=== PATIENT | male | born 1955 | race Caucasian/White ===

== ENCOUNTER 2017-02-05 16:36 | Emergency (ER) | payer MEDICARE, MEDICAID, SELFPAY | END 2017-02-05 20:10 | disposition home or self-care (01) | PROVIDERS: Emergency Provider Emergency Medicine; Family Provider Family Medicine; Visit Provider Emergency Medicine | DX: J20.9 Acute bronchitis, unspecified (principal) | CPT/HCPCS: 71020; 80053; 85025; 87275; 87276; 94640; 99284 ==

== ENCOUNTER → 2018-01-23 09:03 | Outpatient (POV) | payer MEDICARE, SELFPAY ==
[2018-01-23 09:21] VITALS: BP 134/77; PULSE 79; RESP 18; O2SAT 99; BMI 23.7
--- NOTE | 2018-01-23 09:29 | HMH.PAINSOAP ---
[facility] Pain Management SOAP Note Subjective:: Patient is a pleasant 62-year-old white male who presents today for follow-up. Patient has not been seen for quite some time due to insurance changes. Patient states that he is having some neck pain with bilateral finger numbness. Patient states that his primary care physician feels that this is depression due to the of his girlfriend recently. She is currently on [place] 5 mg 1 p.o. 3 times daily from his primary care physician. Because the patient has not been seen for long we will start at the beginning and get some imaging of his neck due to his new symptomology. ROS General: no recent weight change, no fever, no sleep disturbances Respiratory: no cough, no shortness of air, no recurring pulmonary infections Cardiovascular/Peripheral Vascular: No chest pain, No palpitations, no edema, no shortness of breath. Gastrointestinal: no incontinence, normal bowel movements reported Genitourinary: no incontinence Musculoskeletal: Neck pain, arm pain, finger pain, back pain Psychiatric: normal mood/ affect Neurological: [denies weakness in extremities], [denies balance issues] Objective:: Physical Exam General: Alert and oriented x3, no acute distress, pleasant and cooperative, [on room air] Lungs: Resps E/U, Symmetrical chest expansion Eyes: Right pupil equal and reactive, blind in left eye Musculoskeletal: Flexion and extension of cervical and lumbar spine somewhat guarded secondary to pain, deep tendon reflexes normal, strength in upper and lower extremities [5/5], [abnormal gait noted] Neurological: speech clear, vp talent management equal, no gross sensory deficits Assessment:: Degenerative disc disease lumbar spine with lumbar radiculopathy symptoms, degenerative disc disease cervical spinal cervical radiculopathy, post laminectomy syndrome cervical spine Plan:: We will get an MRI of his cervical spine to assess his worsening pain. I do have some concerns given his bilateral hand involvement. We will follow-up with the patient after his MRI. This note was dictated using voice recognition software and may contain errors or omissions
--- NOTE | 2018-03-02 11:12 | PC.NURSE ---
PT NOTIFIED OF APPT WITH DR TAN AT [facility] MAR 27 AT 1015 AND WAS INSTRUCTED TO BRING HIS DISC OF HIS MRI WITH HIM. ZHOU MURILLO.
== END ==
PROVIDERS: PCP Family Medicine; Visit Provider Clinical Nurse Specialist Family Health
DX: M51.16 Intervertebral disc disorders with radiculopathy, lumbar region (principal); M50.10 Cervical disc disorder with radiculopathy, unspecified cervical region; M96.1 Postlaminectomy syndrome, not elsewhere classified
CPT/HCPCS: 99213

== ENCOUNTER → 2018-02-08 12:50 | Outpatient (CLI) | payer MEDICARE, SELFPAY ==
--- NOTE | 2018-02-08 12:53 | MR_ITS ---
MR cervical spine wo con, MR 3-d myelogram/MRCP Ordering Physician: Rashida Hannah Patient Age: 63 years: Male HISTORY: ITS.REASON: NECK PAIN Neck pain many years. Bilateral arm pain. Bilateral hand numbness and tingling.. Prior surgery 1988 Prior cervical fusion TECHNIQUE: Sagittal STIR, T1, T2, axial T1 and T2. On 1.5T Siemens wide bore MRI. 3-D MR myelogram image set obtained & performed on MRI workstation. Additional sagittal thin section T2 weighted dataset obtained from this latter acquisition as well (---76 CPT) COMPARISON :March 2011 CT cervical spine. FINDINGS Cranial cervical junction satisfactory but there is a modest caliber spinal canal at C1 level on 11 mm AP. C2/3 a tiny central disc protrusion. Negligible C3/4. Moderate central canal stenosis Mild Degenerative disc space narrowing with cervical spondylosis. The disc-/ osteophyte features flattening the anterior aspect of the thecal sac & cervical cord but is also some mild posterior element prominence.. Features does yield moderate central canal stenosis. At this level central canal narrows to 6-7 mm. With this there is slight increased signal at the right aspect of the cervical cord seen on sagittal water-weighted images which may reflect cervical myelopathy changes C4/5.. Most Severe central canal stenosis. Prominent, large central disc protrusionAlong with bilateral uncovertebral joint hypertrophy.-Features yields severe central canal stenosis with Prominent flattening and compression of the cervical cord at this level. Central canal narrows to just over 4 mm AP.. Subtle increased signal cervical cord most notable on the axial images may reflect cervical myelopathy changes. Appears to be progressive central disc protrusion/herniation since 2011 C-spine Previous fusion of the C5-C6-C7 vertebral bodies. Disc space obliterated. . At C5/6 There is some mild posterior hypertrophic ridging to the left at C5-C6, which slightly indents the left anterior aspect of the thecal sac. At C6/7 The posterior hypertrophic ridging to more pronounced the left at C6/7, with spurring encroaching upon the left recess & left foramen... C 6/7. Disc intact as is T1/T2. No foramen widely patent bilaterally throughout T2/3. Scant disc protrusion left paracentral. Nonspecific straightening throughout the cervical spine. 3-D MR myelogram image set demonstrates the the pronounced central canal spinal stenosis most severe at C4/5 and less pronounced mild central canal stenosis at C3/4. IMPRESSION: Severe central canal stenosis at C4/5, with moderately pronounced central canal stenosis at C3/4 C4/5. Most Severe central canal stenosis-mainly due fairly large central disc protrusion/central disc herniation at this level.. Also uncovertebral joint hypertrophy & generous posterior elements contribute.... Central canal narrows to just over 4 mm AP-marked effacement & flattening of the cervical cord.. Very Faint increased signal within the cervical cord C4/5 level likely reflect subtle myelopathy as well.. Hypertrophic spurring yields bilateral foraminal encroachment most evident to the left. C4/5 C3/4 moderate pronounced central canal stenosis . Diffuse Disc/osteophyte features along with mildly prominent posterior elements narrows the spinal canal. Yields a fairly pronounced central canal stenosis. There is also focal bright areas of increased signal at the within the right aspect the cervical cord itself reflecting Cervical Myelopathy.. Old cervical fusion of C5-C6-C7 vertebral bodies.. Disc space is basically obliterated at each of these levels due to the fusion. Note generous posterior hypertrophy/osteophytic ridging & spurring to the left-most pronounced/prominent at C6/7 and to lesser degree C5/6. The
== END ==
PROVIDERS: PCP Family Medicine; Visit Provider Clinical Nurse Specialist Family Health
DX: M54.2 Cervicalgia (principal)
CPT/HCPCS: 72141; 76376

== ENCOUNTER → 2018-02-19 12:34 | Outpatient (POV) | payer MEDICARE, SELFPAY ==
--- NOTE | 2018-02-19 13:02 | HMH.PAINSOAP ---
[facility] Pain Management SOAP Note Subjective:: Is a pleasant 63-year-old white male who presents today for follow-up after recent vehicle MRI. Patient has new pathology on his MRI above the level of his fusion. He rates his pain a 9 out of 10. He is on [place] from his Medicare he states he is on any anti-inflammatories at this time. Encouraged him to use ibuprofen. ROS General: no recent weight change, no fever, no sleep disturbances Respiratory: no cough, no shortness of air, no recurring pulmonary infections Cardiovascular/Peripheral Vascular: No chest pain, No palpitations, no edema, no shortness of breath. Gastrointestinal: no incontinence, normal bowel movements reported Genitourinary: no incontinence Musculoskeletal: Neck pain, arm pain Psychiatric: normal mood/ affect Neurological: [denies weakness in extremities], [denies balance issues] Objective:: Physical Exam General: Alert and oriented x3, no acute distress, pleasant and cooperative, [on room air] Lungs: Resps E/U, Symmetrical chest expansion, Eyes: PERRL Musculoskeletal: Flexion and extension of cervical spine somewhat guarded secondary to pain, deep tendon reflexes normal, strength in upper and lower extremities [5/5], [abnormal gait noted] Neurological: speech clear, party host equal, no gross sensory deficits Assessment:: Degenerative disc disease cervical spinal cervical radiculopathy, postlaminectomy syndrome cervical spine. Plan:: We will schedule a C4-C5 cervical steroid injection for the patient. We will also schedule a consultation in regards his new MRI with Dr. Greenberg. The patient is not on any anticoagulation therapy. This note was dictated using voice recognition software and may contain errors or omissions
--- NOTE | 2018-02-19 13:07 | P.CONS_ITS ---
[facility] Pain Management SOAP Note Subjective:: Is a pleasant 63-year-old white male who presents today for follow-up after recent vehicle MRI. Patient has new pathology on his MRI above the level of his fusion. He rates his pain a 9 out of 10. He is on [place] from his Medicare he states he is on any anti-inflammatories at this time. Encouraged him to use ibuprofen. ROS General: no recent weight change, no fever, no sleep disturbances Respiratory: no cough, no shortness of air, no recurring pulmonary infections Cardiovascular/Peripheral Vascular: No chest pain, No palpitations, no edema, no shortness of breath. Gastrointestinal: no incontinence, normal bowel movements reported Genitourinary: no incontinence Musculoskeletal: Neck pain, arm pain Psychiatric: normal mood/ affect Neurological: [denies weakness in extremities], [denies balance issues] Objective:: Physical Exam General: Alert and oriented x3, no acute distress, pleasant and cooperative, [on room air] Lungs: Resps E/U, Symmetrical chest expansion, Eyes: PERRL Musculoskeletal: Flexion and extension of cervical spine somewhat guarded secondary to pain, deep tendon reflexes normal, strength in upper and lower extremities [5/5], [abnormal gait noted] Neurological: speech clear, sheet tailer equal, no gross sensory deficits Assessment:: Degenerative disc disease cervical spinal cervical radiculopathy, postlaminectomy syndrome cervical spine. Plan:: We will schedule a C4-C5 cervical steroid injection for the patient. We will also schedule a consultation in regards his new MRI with Dr. Greenberg. The patient is not on any anticoagulation therapy. This note was dictated using voice recognition software and may contain errors or omissions
[2018-02-19 13:15] VITALS: BP 139/75; PULSE 79; RESP 18; O2SAT 98; BMI 23.8
== END ==
PROVIDERS: PCP Family Medicine; Visit Provider Clinical Nurse Specialist Family Health
DX: M50.10 Cervical disc disorder with radiculopathy, unspecified cervical region (principal); M96.1 Postlaminectomy syndrome, not elsewhere classified
CPT/HCPCS: 99213

== ENCOUNTER 2020-03-03 12:08 | Emergency (ER) | payer MEDICARE, MEDICAID, SELFPAY ==
[2020-03-03 12:10] VITALS: BP 140/87; PULSE 82; RESP 20; TEMP 36.5; O2SAT 97; BMI 30.4
--- NOTE | 2020-03-03 12:20 | ECG_ITS ---
APPROVED REPORT Exam: Resting ECG HR:83 bpm ECG Measurements Heart Rate 83 AXES RI 160 P 69 QRSd 92 QRS 81 QT 368 T 49 QTc 432 Conclusion Normal sinus rhythm Normal ECG Electronically signed by : Jayme Levin, 03/03/2020 20:58:37
--- NOTE | 2020-03-03 12:23 | XR_ITS ---
PROCEDURE: XR CHEST PORTABLE CLINICAL HISTORY: cough COMPARISON: CT [facility] CT CHEST W/O CONTRAST from 08/15/2013 CR CXR1 CHEST-PORTABLE from 09/15/2014 CR CXR CHEST(2 VIEWS-NOT PORTABLE) from 02/05/2017 CR XR CHEST 2V from 04/05/2019 FINDINGS: The cardiomediastinal silhouette and pulmonary vascularity are within normal limits. The lungs are clear without infiltrates, suspicious nodules, or pleural effusions. No acute bony abnormalities. IMPRESSION: No acute findings. Dictated by: Rush Benson MD 03/03/2020 12:56 Rush Benson MD in [place] 03/03/2020 12:56
--- NOTE | 2020-03-03 12:24 | CT_ITS ---
PROCEDURE: CT ABDOMEN PELVIS WO CON CLINICAL INDICATION: abd pain Epigastric burning, pain, epigastric COMPARISON: CT WO CT CHEST W/O CONTRAST from 08/15/2013 TECHNIQUE: Axial images obtained with sagittal and coronal reformats. All CT scans at the facility use one or more dose reduction, viz: automated exposure control, ma/kV adjustment per patient size (including targeted exams where dose is matched to indication, i.e. head), or iterative reconstruction technique. FINDINGS: LOWER THORAX: Minimal atelectatic/fibrotic changes are present in the lung bases with scattered small bilateral pulmonary nodules which appear similar compared to 08/15/2013. Coronary artery calcifications are present. There is minimal thickening of the pericardium anteriorly nonspecific. ABDOMEN & PELVIS: 3.4 x 3 cm cystic areas present in the left hepatic lobe segment 4 a consistent with a hepatic cyst. This previously measured 2.4 by 1.7 cm. An additional hypodensity is present in the right hepatic lobe segment 5 measuring 8 mm and may also represent a small cyst. Gallstones are present. The spleen and left adrenal gland are unremarkable. Nodular enlargement involves the lateral limb of the right adrenal gland not significantly changed measuring approximately 12 mm consistent with an adenoma. The pancreas has an unremarkable appearance. There is a mildly enlarged perigastric lymph node along the lesser curvature of the stomach measuring approximately 13 by 10 mm. Other smaller nodes are present in the epigastric area and periportal region. No renal or ureteral calculi. No hydronephrosis.. Prior appendectomy. No intestinal obstruction or free air. No evidence diverticulitis. There are few colonic diverticula. There are mild osteoarthritic changes of the hips. Exostosis involves the left ilium anteriorly and could be due to old fracture or postsurgical change. IMPRESSION: 1. Cholelithiasis. 2. Mild epigastric/perigastric adenopathy. Etiology indeterminate. 3. Hepatic cysts 4. Other nonacute findings as detailed above. Dictated by: Rush Benson MD 03/03/2020 13:12 Rush Benson MD in [place] 03/03/2020 13:12
[2020-03-03 12:36] LABS: Basophils % 0.4 % (0.1-2.0); Eosinophils # 0.3 K/mm3 (0.0-0.4); Eosinophils % 2.7 % (0.1-12.0); Hematocrit 50.5 % (42.0-52.0); Hemoglobin 17.5 g/dL (14.1-18.0); Lymphocytes # 1.4 K/mm3 (0.7-4.5); Lymphocytes % 14.6 % (10-50); Mean Corpuscular HGB Conc 34.6 g/dL (31.8-35.4); Mean Corpuscular Volume 95.3 fl (80-94); Mean Platelet Volume 10.3 fl (7.4-10.4); Monocytes # 0.6 K/mm3 (0.1-1.0); Monocytes % 6.5 % (1.7-9.3); Neutrophils # 7.3 K/mm3 (1.8-7.8); Neutrophils % 75.8 % (37.0-80.0); Platelet Count 237 K/mm3 (142-424); White Blood Count 9.6 K/mm3 (4.8-10.8)
[2020-03-03 12:42] LABS: Chloride 104 mmol/L (98-107)
[2020-03-03 12:43] LABS: Potassium 4.8 mmoL/L (3.5-5.1); Sodium 137 mmol/L (136-145)
[2020-03-03 12:45] LABS: Alanine Aminotransferase 22 U/L (12-78); Alkaline Phosphatase 98 U/L (38-126); Anion Gap 11.8 mEq/L (5-15); Aspartate Amino Transferase 25 U/L (17-59); Bilirubin,Total 0.6 mg/dl (0.2-1.3); Blood Urea Nitrogen 17 mg/dl (9-20); Carbon Dioxide 26 mmol/L (22.0-30.0); Creatinine Clearance Estimated 92 mL/min (50-200); Estimated Glomerular Filt Rate 134 ml/min (>60); GFR (African American) 163 ML/MIN (>60); Lipase 109 U/L (23-300)
[2020-03-03 12:46] LABS: Albumin Level 4.1 g/dl (3.5-5.0); Albumin/Globulin Ratio 1.3 (1.1-1.8); Calcium 9.6 mg/dl (8.4-10.2); Globulin 3.1 g/dL (1.3-3.2); Glucose 156 mg/dl (74-100); Total Protein,Serum 7.2 g/dl (6.3-8.2)
[2020-03-03 12:52] LABS: Activated Partial Thrombo Time 26.9 seconds (23.6-34.0); INR 1.02 (0.9-1.1); Prothrombin Time 11.3 seconds (9.4-11.8)
[2020-03-03 13:00] LABS: Troponin I < 0.01 ng/ml (0.00-0.034)
[2020-03-03 13:11] LABS: Coronavirus 19 IgG Antibody Negative (Negative); Coronavirus 19 IgM Antibody Negative (Negative)
--- NOTE | 2020-03-03 14:05 | HMH.EDGENADL ---
ED Disposition Clinical Impression: PUD (peptic ulcer disease) Disposition: Home, Self-Care Condition on Discharge: Good Instructions: DI for Peptic Ulcer Prescriptions: Sucralfate [Carafate 1gm Tab] 1 gm PO BID #10 tab Transmission Status: Pending to [facility] Mag Hydrox/Aluminum Hyd/Simeth [Maalox 30ml UDC] 30 ml PO TID #120 oral.susp Transmission Status: Pending to [facility] Famotidine [Pepcid 20mg Tablet] 20 mg PO DAILY #20 tab Transmission Status: Pending to [facility] Referrals: Joe Prince [Primary Care Provider] - Jus Li MD [Staff Physician] - - Critical Care Critical Care Time: No Attestation: On 03/03/20, the high probability of a clinically significant, sudden or life threatening deterioration of the following system(s) required my full and direct attention, intervention and personal management. The time I documented below is in addition to time spent performing reported procedures but includes the following listed in this critical care notation. Medical Decision Making - Medical Records Medical records reviewed: Yes: I reviewed the patient's medical records. - Lan Inquiry Pt receiving controlled substance: Yes Lan was queried for this patient: No Reason not queried -: Lan login issues Risks and benefits of using a controlled substance: were discussed with pt by me Vital Signs: 03/03/20 12:10 03/03/20 16:33 Temperature 97.7 F 97.9 F Temperature Source Oral Oral Pulse Rate 80 Pulse Rate [Left Radial] 82 Respiratory Rate 20 18 Blood Pressure 145/88 H Blood Pressure [Right Arm] 140/87 Blood Pressure Mean [Right Arm] 104 Blood Pressure Source Automatic Cuff Blood Pressure Source [Right Arm] Automatic Cuff Blood Pressure Position Sitting Blood Pressure Position [Right Arm] Sitting 02 Sat by Pulse Oximetry 97 Oxygen Delivery Method Room Air Room Air - Lab Data Lab Results 03/03/20 12:20: WBC 9.6, RBC 5.30, Hgb 17.5, Hct 50.5, MCV 95.3 H, MCH 33.0 H, MCHC 34.6, RDW 13.0, Plt Count 237, MPV 10.3, Neut % (Auto) 75.8, Lymph % (Auto) 14.6, [place] % (Auto) 6.5, Eos % (Auto) 2.7, Baso % (Auto) 0.4, Neut # (Auto) 7.3, Lymph # (Auto) 1.4, [place] # (Auto) 0.6, Eos # (Auto) 0.3, Baso # (Auto) 0.0 03/03/20 12:20: Sodium 137, Potassium 4.8, Chloride 104, Carbon Dioxide 26, Anion Gap 11.8, BUN 17, Creatinine 0.60 L, Estimated Creat Clear 92, Estimated GFR 134, Est GFR ( Amer) 163, Glucose 156 H, Calcium 9.6, Total Bilirubin 0.6, AST 25, ALT 22, Alkaline Phosphatase 98, Troponin I < 0.01, Total Protein 7.2, Albumin 4.1, Globulin 3.1, Albumin/Globulin Ratio 1.3, Lipase 109 03/03/20 12:20: SARS-CoV-2 IgG Ab (Rapid) Negative, SARS-CoV-2 IgM Ab (Rapid) Negative 03/03/20 12:20: PT 11.3, INR 1.02, APTT 26.9 03/03/20 15:25: Troponin I < 0.01 Result diagrams: 03/03/20 12:20 03/03/20 12:20 Orders (Tests/Meds): ED MEDICATIONS Generic Name Dose Route Start Last Admin Trade Name Freq PRN Reason Stop Dose Admin Sodium Chloride 10 ml 03/03/20 12:24 Sodium Chloride 0.9% 10ml Vial IV 04/02/20 12:23 NEEDED PRN dilute protonix Discontinued Medications Generic Name Dose Route Start Last Admin Trade Name Freq PRN Reason Stop Dose Admin Belladonna Alkaloids 60 ml 03/03/20 14:41 03/03/20 15:57 Gi Cocktail 60ml Udc PO 03/03/20 14:42 60 ml ONCE ONE Administration Morphine Sulfate 4 mg 03/03/20 12:23 03/03/20 12:32 Morphine 4mg/Ml Syringe IV 03/03/20 12:24 4 mg ONCE ONE Administration Ondansetron HCl 4 mg 03/03/20 12:23 03/03/20 12:32 Ondansetron 4mg/2ml Vial IV 03/03/20 12:24 4 mg ONCE ONE Administration Pantoprazole Sodium 40 mg 03/03/20 12:24 03/03/20 12:32 Pantoprazole 40mg Vial IV 03/03/20 12:25 40 mg ONCE ONE Administration ORDERS Category Date Time Status Troponin I Q3H Lab 03/03/20 18:30 Ordered - Radiology Data #1 Image(s): Chest Image Reviewed: Yes
[2020-03-03 16:04] LABS: Troponin I < 0.01 ng/ml (0.00-0.034)
[2020-03-03 16:33] VITALS: BP 145/88; PULSE 80; RESP 18; TEMP 36.6; O2SAT 96
== END 2020-03-03 16:44 | disposition home or self-care (01) ==
PROVIDERS: Emergency Provider Emergency Medicine; PCP Family Medicine
DX: K27.9 Peptic ulcer, site unspecified, unspecified as acute or chronic, without hemorrhage or perforation (principal); E78.5 Hyperlipidemia, unspecified; F17.210 Nicotine dependence, cigarettes, uncomplicated; Z88.0 Allergy status to penicillin
CPT/HCPCS: 36415; 71045; 74176; 80053; 83690; 84484; 85025; 85610; 85730; 86328; 93005; 96367; 96374; 99281; J2405

== ENCOUNTER 2020-04-06 04:23 | Emergency (ER) | payer MEDICARE, MEDICAID, SELFPAY ==
[2020-04-06 04:24] VITALS: BP 133/86; PULSE 77; RESP 16; TEMP 36.5; O2SAT 97; BMI 30.4
--- NOTE | 2020-04-06 04:40 | CT_ITS ---
PROCEDURE: CT CERVICAL SPINE WO CON CLINICAL INDICATION: accident Severe neck pain radiating down right cyst COMPARISON: No exams were available for comparison TECHNIQUE: Axial images obtained with sagittal and coronal reformats. All CT scans at the facility use one or more dose reduction, viz: automated exposure control, ma/kV adjustment per patient size (including targeted exams where dose is matched to indication, i.e. head), or iterative reconstruction technique. Axial spiral CT scanning performed of the cervical spine beginning at the base of the skull and continuing to the upper T-spine. 3-D multiplanar reconstruction with 3-D manipulation of volumetric data set in image rendering was completed by the radiologist and/or technologist with the supervision of the radiologist on independent workstation. FINDINGS: No fracture nor subluxation is evident. Normal prevertebral soft tissues. Facets, neural foramen and vertebral bodies intact and unremarkable. Normal C1/C2 relationships. Apices of lungs are clear with no acute findings. There is straightening/reversal of the normal lordosis which may be due to patient positioning or muscle spasm.. There is fusion of C5-C6 and C7 vertebral bodies with mild kyphosis at the C4-C5 level. No acute fracture or dislocation. C2-C3: Degenerate disc disease with severe narrowing of the foramen on the left from facet and uncovertebral hypertrophy. C3-C4: Severe degenerative disc disease with severe bilateral foraminal narrowing from facet and uncovertebral hypertrophy with canal stenosis. C4-C5: Large central disc herniation is suspected slightly eccentric toward the left. Suggest MRI for confirmation and to determine degree of cord impingement/compression. Prominent left-sided uncovertebral disc osteophyte complex with left lateral recess narrowing and severe left-sided foraminal narrowing. Facet hypertrophic changes also noted. There is canal stenosis at this level. C5-C6: Intervertebral body fusion with prominent left uncovertebral disc osteophyte complex with severe left lateral recess and foraminal narrowing. C6-C7: Inter vertebral body fusion with canal stenosis and endplate osteophytes with severe left-sided foraminal and lateral recess narrowing from disc osteophyte complex. Right-sided foraminal narrowing also noted. C7-T1: Unremarkable. Lung apices are clear.. IMPRESSION: Multilevel cervical spondylosis with canal stenosis lateral recess and foraminal narrowing. Please see above for detailed description at each level. Suspect disc herniation at C4-C5. Suggest MRI for confirmation No acute fracture Dictated by: Rush Benson MD 04/06/2020 07:05 Rush Benson MD in [place] 04/06/2020 07:05
[2020-04-06 04:56] LABS: Basophils # 0.1 K/mm3 (0-0.2); Basophils % 0.6 % (0.1-2.0); Eosinophils # 0.3 K/mm3 (0.0-0.4); Eosinophils % 3.8 % (0.1-12.0); Hematocrit 47.7 % (42.0-52.0); Hemoglobin 15.6 g/dL (14.1-18.0); Lymphocytes # 2.1 K/mm3 (0.7-4.5); Lymphocytes % 27.4 % (10-50); Mean Corpuscular HGB Conc 32.8 g/dL (31.8-35.4); Mean Corpuscular Hemoglobin 31.8 pg (27.0-31.2); Mean Corpuscular Volume 96.9 fl (80-94); Mean Platelet Volume 9.6 fl (7.4-10.4); Monocytes # 0.7 K/mm3 (0.1-1.0); Monocytes % 8.6 % (1.7-9.3); Neutrophils # 4.6 K/mm3 (1.8-7.8); Neutrophils % 59.6 % (37.0-80.0); Platelet Count 198 K/mm3 (142-424); Red Blood Count 4.93 M/mm3 (4.60-6.20); White Blood Count 7.7 K/mm3 (4.8-10.8)
[2020-04-06 05:04] LABS: Chloride 104 mmol/L (98-107); Potassium 4.6 mmoL/L (3.5-5.1); Sodium 139 mmol/L (136-145)
[2020-04-06 05:07] LABS: Alanine Aminotransferase 26 U/L (12-78); Albumin/Globulin Ratio 1.3 (1.1-1.8); Alkaline Phosphatase 93 U/L (38-126); Anion Gap 7.6 mEq/L (5-15); Aspartate Amino Transferase 31 U/L (17-59); Bilirubin,Total 0.6 mg/dl (0.2-1.3); Blood Urea Nitrogen 14 mg/dl (9-20); Calcium 9.7 mg/dl (8.4-10.2); Carbon Dioxide 32 mmol/L (22.0-30.0); Creatinine Clearance Estimated 92 mL/min (50-200); Estimated Glomerular Filt Rate 112 ml/min (>60); GFR (African American) 136 ML/MIN (>60); Globulin 3.1 g/dL (1.3-3.2); Glucose 138 mg/dl (74-100); Total Protein,Serum 7.1 g/dl (6.3-8.2)
--- NOTE | 2020-04-06 05:26 | HMH.EDNECK ---
ED Disposition Clinical Impression: Cervical radicular pain, Foraminal stenosis of cervical region Disposition: Home, Self-Care Condition on Discharge: Good Instructions: DI for Cervical Radiculopathy Additional Instructions: use meds and call pcp for follow up Prescriptions: predniSONE [Prednisone 20mg Tab] 20 mg PO BID #10 tab Transmission Status: Pending to [facility] Referrals: Joe Prince [Primary Care Provider] - - Critical Care Critical Care Time: No Attestation: On 04/06/20, the high probability of a clinically significant, sudden or life threatening deterioration of the following system(s) required my full and direct attention, intervention and personal management. The time I documented below is in addition to time spent performing reported procedures but includes the following listed in this critical care notation. Medical Decision Making - Medical Records Medical records reviewed: Yes: I reviewed the patient's medical records. - Lan Inquiry Pt receiving controlled substance: No Vital Signs: 04/06/20 04:24 Temperature 97.7 F Temperature Source Oral Pulse Rate [Left] 77 Respiratory Rate 16 Blood Pressure [Left Arm] 133/86 Blood Pressure Mean [Left Arm] 101 02 Sat by Pulse Oximetry 97 Oxygen Delivery Method Room Air - Lab Data Lab results reviewed: Yes: I reviewed the patient's lab results. Lab Results 04/06/20 04:47: WBC 7.7, RBC 4.93, Hgb 15.6, Hct 47.7, MCV 96.9 H, MCH 31.8 H, MCHC 32.8, RDW 13.0, Plt Count 198, MPV 9.6, Neut % (Auto) 59.6, Lymph % (Auto) 27.4, [place] % (Auto) 8.6, Eos % (Auto) 3.8, Baso % (Auto) 0.6, Neut # (Auto) 4.6, Lymph # (Auto) 2.1, [place] # (Auto) 0.7, Eos # (Auto) 0.3, Baso # (Auto) 0.1 04/06/20 04:47: Sodium 139, Potassium 4.6, Chloride 104, Carbon Dioxide 32 H, Anion Gap 7.6, BUN 14, Creatinine 0.70, Estimated Creat Clear 92, Estimated GFR 112, Est GFR ( Amer) 136, Glucose 138 H, Calcium 9.7, Total Bilirubin 0.6, AST 31, ALT 26, Alkaline Phosphatase 93, C-Reactive Protein 2.0, Total Protein 7.1, Albumin 4.0, Globulin 3.1, Albumin/Globulin Ratio 1.3 Result diagrams: 04/06/20 04:47 04/06/20 04:47 Orders (Tests/Meds): ED MEDICATIONS Discontinued Medications Generic Name Dose Route Start Last Admin Trade Name Júniorq PRN Reason Stop Dose Admin Ketorolac Tromethamine 30 mg 04/06/20 04:41 04/06/20 04:50 Ketorolac 30mg/Ml Vial IV 04/06/20 04:42 30 mg ONCE ONE Administration Methylprednisolone Sodium Succinate 125 mg 04/06/20 04:41 04/06/20 04:50 Methylprednisolone Sod Succ 125mg Vial IV 04/06/20 04:42 125 mg ONCE ONE Administration ORDERS Category Date Time Status CT cervical spine wo con Stat Cat Scan 04/06/20 04:40 Taken C-Reactive Protein Stat Lab 04/06/20 04:47 Results Complete Blood Count Auto Diff Stat Lab 04/06/20 04:47 Results Comprehensive Metabolic Panel Stat Lab 04/06/20 04:47 Results ESR [Erythrocyte Sedimentation Rate] Stat Lab 04/06/20 04:47 Results Procalcitonin Stat Lab 04/06/20 04:47 Results - CT Data CT Scan: C-Spine Time Received: 05:[address] Reviewed: Yes: I have viewed the radiologist's interpretation Preliminary Findings: Abnormal (see report ) - Reevaluation(s) Time: 05:30 Reevaluation #1: improved Medical Decision Narrative: cervical disc with radicular pain after overuse will need mri Neck Pain/Injury HPI - General Chief Complaint: Extremity Injury, Upper Stated Complaint: Pain in rt neck and down arm Time Seen by Provider: 04/06/20 04:35 Mode of Arrival: Ambulatory Source of Information: Patient, Medical Record Limitations: No Limitations Description of Symptoms (Recalled from ER Triage Doc. by RN): pt states yesterday morning was using a sledge hammer to break up the ice in driveway. pt c/o rt side neck pain radiating down rt arm. - History of Present Illness HPI Narrative: rt neck pain with rad to rt upper ext after overuse - no rash o
[2020-04-06 05:27] LABS: Procalcitonin 0.053 ng/mL (0.0-2.0)
[2020-04-06 05:38] VITALS: BP 137/74; PULSE 75; RESP 14; TEMP 36.3; O2SAT 96
[2020-04-06 05:52] LABS: Erythrocyte Sedimentation Rate 15 mm/hr (0-20)
== END 2020-04-06 05:39 | disposition home or self-care (01) ==
PROVIDERS: Emergency Provider Emergency Medicine; PCP Family Medicine
DX: M54.12 Radiculopathy, cervical region (principal); M48.02 Spinal stenosis, cervical region; M70.88 Other soft tissue disorders related to use, overuse and pressure other site; E78.5 Hyperlipidemia, unspecified; Z88.0 Allergy status to penicillin; F17.210 Nicotine dependence, cigarettes, uncomplicated; Z79.899 Other long term (current) drug therapy
CPT/HCPCS: 96374; 72125; 80053; 84145; 85025; 85651; 86140; 96375; 99282

== ENCOUNTER 2020-09-08 18:02 | Emergency (ER) | payer MEDICARE, MEDICAID, SELFPAY ==
[2020-09-08 18:04] VITALS: BP 134/74; PULSE 91; RESP 16; TEMP 36.6; O2SAT 98; BMI 27.5
--- NOTE | 2020-09-08 18:17 | XR_ITS ---
PROCEDURE INFORMATION: Exam: XR Right Hip Exam date and time: 09/08/2020 6:17 PM Age: 65 years old Clinical indication: Injury or trauma; Fall; Blunt trauma (contusions or hematomas); Patient HX: Patient fell 3 days ago in his yard reaching for a limb. Right hip pain. Difficulty ambulating. ; Additional info: Fall pain TECHNIQUE: Imaging protocol: XR Right hip. Views: 2 or 3 views hip with pelvis when performed. COMPARISON: CT ABDOMEN PELVIS WO CON 03/03/2020 12:33 PM FINDINGS: Bones/joints: Chronic appearing changes in the left iliac bone were present on prior CT. No displaced fracture. [id number] bilateral degenerative hip arthritis. Soft tissues: Unremarkable. Other findings: No malalignment. IMPRESSION: No evidence of acute osseous injury. For high clinical concern or inability to bear weight, CT is offered.
--- NOTE | 2020-09-08 18:33 | PC.NURSE ---
PT GOING TO XRAY
--- NOTE | 2020-09-08 18:56 | CT_ITS ---
PROCEDURE INFORMATION: Exam: CT Pelvis Without Contrast; Skeletal Exam date and time: 09/08/2020 6:56 PM Age: 65 years old Clinical indication: Patient HX: Right hip pain after a fall 3 days ago , unable to bear weight on right hip; Additional info: Right hip pain difficulty bearing weight TECHNIQUE: Imaging protocol: Computed tomography images of the pelvis without contrast. Exam focused on the skeletal structures. 3D rendering (Not supervised by radiologist): MIP and/or 3D reconstructed images were created by the technologist. Radiation optimization: All CT scans at this facility use at least one of these dose optimization techniques: automated exposure control; mA and/or kV adjustment per patient size (includes targeted exams where dose is matched to clinical indication); or iterative reconstruction. COMPARISON: CT ABDOMEN PELVIS WO CON 03/03/2020 12:33 PM FINDINGS: Bones/joints: Chronic appearing changes in the left iliac bone may be due to prior harvest or injury. No fracture. No malalignment. Mild to moderate bilateral degenerative changes in the hips. Mild bilateral degenerative changes in the SI joints. Mild lower lumbar facet arthropathy. Soft tissues: Unremarkable. IMPRESSION: No evidence of fracture
--- NOTE | 2020-09-08 19:10 | HMH.EDGENADL ---
ED Disposition Clinical Impression: Contusion, hip Qualifiers: Encounter type: initial encounter Laterality: right Qualified Code(s): S70.01XA - Contusion of right hip, initial encounter Disposition: Home, Self-Care Condition on Discharge: Good Additional Instructions: Use Tylenol and ibuprofen for pain and return to the ED for any new or worsening symptoms. Referrals: Joe Prince [Primary Care Provider] - Time of Disposition: 19:46 - Critical Care Critical Care Time: No Attestation: On 09/08/20, the high probability of a clinically significant, sudden or life threatening deterioration of the following system(s) required my full and direct attention, intervention and personal management. The time I documented below is in addition to time spent performing reported procedures but includes the following listed in this critical care notation. Medical Decision Making - Medical Records Medical records reviewed: Yes: I reviewed the patient's medical records. - Lan Inquiry Pt receiving controlled substance: No Vital Signs: 09/08/20 18:04 Temperature 98 F Temperature Source Oral Pulse Rate [Radial] 91 H Respiratory Rate 16 Blood Pressure [Right Arm] 134/74 Blood Pressure Mean [Right Arm] 94 Blood Pressure Position [Right Arm] Sitting 02 Sat by Pulse Oximetry 98 Oxygen Delivery Method Room Air Orders (Tests/Meds): ED MEDICATIONS Discontinued Medications Generic Name Dose Route Start Last Admin Trade Name Freq PRN Reason Stop Dose Admin Ketorolac Tromethamine 30 mg 09/08/20 18:36 09/08/20 18:49 Ketorolac 30mg/Ml Vial IM 09/08/20 18:37 30 mg ONCE ONE Administration Medical Decision Narrative: 65-year-old male who presents with right hip pain after a fall from standing 3 days ago. Patient is having pain with weightbearing. Initial x-ray demonstrates no acute fracture or malalignment. A CT bony pelvis is ordered due to the patient's persistent difficulty with bearing weight. Patient was given Toradol 30 mg IM. General Adult HPI - General Chief complaint: PAIN Stated complaint: Pain in R hip and leg Time Seen by Provider: 09/08/20 18:15 Mode of Arrival: Ambulatory Limitations: No Limitations Description of Symptoms (Recalled from ER Triage Doc. by RN): TO ED PER PVT CAR WITH C/O RT HIP PAIN STATES FELL 3 DAYS AGO X 2 PT STATES RT LEG GAVE OUT ON ME PT DENIES LOC. - History of Present Illness HPI narrative: 65-year-old male who presents ambulating in the department with some difficulty with severe limp to the right leg after he was pulling on a tree limb and fell from standing onto the right hip 3 days ago. He has mostly been resting since then with shooting pain from the right hip down to the knee. Pain is sharp in nature and is currently 5 out of 10 worse with walking. Denies lower back pain, saddle anesthesia, weakness to the leg, urinary retention, numbness. Denies head trauma. - Related Data Home Medications Medication Instructions Recorded Confirmed Albuterol Sulfate [Ventolin HFA 2 puffs PO QID 12/16/17 04/05/19 Inhaler] Atorvastatin Calcium [Atorvastatin 40 mg PO HS 12/16/17 04/05/19 40mg Tab] Fluticasone/Vilanterol [Breo 1 inh PO DAILY 12/16/17 04/05/19 Ellipta 100-25 Mcg INH] Hydrocod/Acet 5/325 mg [[place] 1 tab PO TID 12/16/17 04/05/19 5/325mg tablet] Levothyroxine Sodium 25 mcg PO DAILY 12/16/17 04/05/19 [Levothyroxine 25mcg (0.025mg) Tab] Diclofenac Sodium [Diclofenac Sod 1 applicatio TP QID 04/05/19 04/05/19 100gm Topical Gel] Previous Rx's Medication Instructions Recorded Tizanidine HCl [Zanaflex 4mg 4 mg PO TID PRN #30 tab 04/05/19 tab] methylPREDNISolone [Medrol 4mg 4 mg PO DIRECTED #21 tab 04/05/19 tab] Famotidine [Pepcid 20mg Tablet] 20 mg PO DAILY #20 tab 03/03/20 Mag Hydrox/Aluminum Hyd/Simeth 30 ml PO TID #120 oral.susp 03/03/20 [Maalox 30ml UDC] Sucralfate [Carafate 1gm Tab] 1 gm PO BID #1
[2020-09-08 19:50] VITALS: BP 137/81; PULSE 89; RESP 16; TEMP 36.7; O2SAT 99
== END 2020-09-08 19:53 | disposition home or self-care (01) ==
PROVIDERS: Emergency Provider Student in an Organized Health Care Education/Training Program; PCP Family Medicine
DX: S70.01XA Contusion of right hip, initial encounter (principal); X50.0XXA Overexertion from strenuous movement or load, initial encounter; Y92.89 Other specified places as the place of occurrence of the external cause
CPT/HCPCS: 72192; 73502; 96372; 99282

== ENCOUNTER 2021-01-21 13:00 | Outpatient (RCR) | payer MEDICARE, MEDICAID, SELFPAY | END 2021-01-21 13:05 | disposition home or self-care (01) | LOC: PT 13:00 | PROVIDERS: PCP Family Medicine; Visit Provider Family Medicine | DX: M54.50 Low back pain, unspecified (principal); M25.551 Pain in right hip | CPT/HCPCS: 97010; 97012; 97014; 97110; 97116; 97140; 97163; 97164; G0283 ==

== ENCOUNTER → 2021-04-19 14:53 | Outpatient (CLI) | payer MEDICARE, MEDICAID, SELFPAY ==
--- NOTE | 2021-04-19 14:57 | CT_ITS ---
FINAL REPORT TECHNIQUE: Axial images were obtained from the lung apex to the mid abdomen by computed tomography. Low-dose protocol was utilized. CLINICAL HISTORY: H/O NICOTINE DEPENDENCE FINDINGS: CHEST CT LOW DOSE CTDI vol (mGy): 2.90 DLP (mGy-cm): 102.90 There is no axillary adenopathy. There is no hilar or mediastinal adenopathy. The heart is normal in size. There is no pericardial or pleural effusion. There is mild scarring and mild emphysema. There is a calcified granuloma in the right lower lobe. There is a lateral left upper lobe nodule measuring 2 mm well-seen on image #24. There is a 17 mm right adrenal nodule, favor an adenoma. A gallstone is identified. There is a cyst in left liver dome measuring 32 mm. Limited images of the upper abdomen are unremarkable. IMPRESSION: Left upper lobe nodule measures 2 mm. Lung RADS category 2. Recommend 12 month follow-up low-dose chest CT. Reviewed, Interpreted and Dictated by Vitor Rod III, MD Transcribed by Bethany Jones Authenticated by Vitor Rod III, MD on 04/20/2021 08:13:[address] [facility]
== END ==
PROVIDERS: PCP Family Medicine; Visit Provider Family Medicine
DX: Z87.891 Personal history of nicotine dependence (principal); Z12.2 Encounter for screening for malignant neoplasm of respiratory organs
CPT/HCPCS: 71271

== ENCOUNTER → 2021-07-20 06:50 | Outpatient (CLI) | payer MEDICARE, MEDICAID, SELFPAY ==
--- NOTE | 2021-07-20 06:51 | CA_ITS ---
APPROVED REPORT EXAM: Comprehensive 2D, Doppler, and color-flow Echocardiogram [employer] Sticker: Rebecca Crawford RVT Ht: 5 ft 8 in Wt: 167lbs BSA: 1.89 BP: 129/87 mmHg Indications: CAD,SOA,DM,SMOKER,HLD 2D Dimensions LVOT 1.93 cm (M/F) 1.5-2.5 LA Volume 17.90 mL LA Volume Index 9.47 mL/m2 (M/F) 16-34 M-Mode Dimensions RVDd 2.17 cm (0.9-2.6) LA Diam 3.71 cm (1.9-4.0) LVDd 5.11 cm (3.5-5.7) Ao Diam 3.03 cm (2.0-3.7) LVDs 3.62 cm (3.5-5.7) IVSd 0.84 cm (0.6-1.1) PWd 0.48 cm (0.6-1.1) EF (Teich) 55.60% FS 29.20% EDV (Teich) 124.40 mL TAPSE 3.02 (<1.7) ESV (Teich) 55.20 mL LV Diastology E Decel Time 180.00 (160-240 msec) E/A Ratio 0.8 MED E' 8.10 (< 7 cm/sec) E'/MED E' Ratio 9.69 (>14) LAT E' 10.00 (<10 cm/sec) E/LAT E' Ratio 7.85 (>14) Aortic Valve AO Peak GR. 6.30 mmHg Mitral Valve MV E Max Thanh. 79.00 (40-130 cm/s) MV A Velocity 102.00 (40-130 cm/s) E/A Ratio 0.77 MV Decel. Time 180.00 (160-240 ms) MV PHT 53.00 ms Pulmonary Valve PV Peak Velocity 73.00 (50-150 cm/s) Tricuspid Valve TR P. Velocity 252.00 cm/s RAP Estimate 10.00 mmHg RVSP 35.40 mmHg Left Ventricle Left atrium is mildly enlarged, left ventricle is normal size, mild concentric left ventricular hypertrophy, estimated ejection fraction 55% with no regional wall motion abnormality, grade 1 diastolic dysfunction seen without tissue Doppler evidence of raise left atrial pressure. Right Ventricle Right atrium and right ventricle qualitatively mildly enlarged with normal contractility. Aortic Valve Aortic valve is minimally thickened and fibrosed there is no aortic stenosis or aortic insufficiency. Mitral Valve Mitral valve grossly normal, there is trace mitral regurgitation. Tricuspid Valve Tricuspid valve grossly normal, there is trace tricuspid regurgitation, tricuspid regurgitation jet velocity is inadequate for calculation of the right ventricular systolic pressure. Pulmonic Valve Pulmonic valve is poorly visualized. Great Vessels Aortic root is normal size. Inferior vena cava is normal size with normal inspiratory collapse. Pericardium No significant pericardial effusion noted. Conclusion 1. Mild biatrial enlargement, normal left ventricular size, mild concentric left ventricular hypertrophy, estimated ejection fraction 55% with no regional wall motion abnormality, grade 1 diastolic dysfunction seen without tissue Doppler evidence of raise left atrial pressure. 2. Mildly enlarged right ventricle with normal contractility. 3. Trace mitral and tricuspid regurgitation. 4. No significant pericardial effusion. 5. Inferior vena cava is normal size with normal inspiratory collapse. Electronically signed by : Buddy Mccarty MD 07/21/2021 12:00:24
--- NOTE | 2021-07-20 06:55 | NM_ITS ---
APPROVED REPORT Exam: Nuclear Stress Test Indication: Chest pain, SOB, CAD, DM, High cholesterol, Tobacco use, Family history Patient Location: Outpatient Stress Tech: Melly Piper [place] Tech:Pauline Bloom, ARRT, RT (R)(N) Ht: 5 ft 8 in Wt: 164 lbs HR: 57 bpm BP: 123/69 mmHg BSA: 1.88 m2 TID: 1.09 BMI: 24.9 History: Chest pain, SOB, CAD, DM, High cholesterol, Tobacco use, Family history Procedure: Patient received a 0.4 mg of intravenous Lexiscan, resting heart rate 57 bpm, resting blood pressure 123/69 mmHg, with Lexiscan maximum heart rate achived was 79 bpm which is Less than 85 % of the maximum predicted heart rate and blood pressure was 123/69 mmHg. With Lexiscan, patient denied any complaint of chest pain. Electrocardiogram Resting electrocardiogram shows sinus rhythm, with Lexiscan there is less than 1.[address] segment depression noted from the baseline EKG. The EKG portion of the Lexiscan is nondiagnostic. Cardiac Stress and Resting SPECT Images: Cardiac Stress and Resting SPECT images were obtained using technetium 99m Myoview 32.7 mCi stress and 10.98 mCi at rest. Gated SPECT for analysis of segmental wall motion and calculation of the ejection fraction also done, prone images were also obtained. Cardiac stress and rest SPECT images show uniform myocardial activity without segmental perfusion abnormality, computer derived ejection fraction is 53% with no regional wall motion abnormality, right ventricle is normal size and contractility. Conclusion: 1. The EKG portion of the Lexiscan is nondiagnostic. 2. No scintigraphic evidence of reversible ischemia seen, computer derived ejection fraction 53% with no regional wall motion abnormality, right ventricle is normal size and contractility. 3. Normal Lexiscan Myoview study. Electronically signed by : Buddy Mccarty MD 07/21/2021 11:18:21
--- NOTE | 2021-07-20 08:14 | HMH.ITSHM ---
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 []METFORMIN HYDROCODONE DULOXETINE BISOPROLOL ASA LEVOTHYROXINE BREO ATORVASTATIN ALBUTEROL
--- NOTE | 2021-07-20 08:57 | CA_ITS ---
APPROVED REPORT Exam: Pharmacologic Technologist: Melly Gonzalez, Ht: 5 ft 8 in Wt: 167 lbs BSA: 1.89 m2 HR: 54 bpm BP: 123/69 mmHg Rhythm: SINUS CLARE, OTHERWISE NORMAL Medical History Medical History: Hyperlipidemia Medications: Levothyroxine,,,,, Aspirin,,,,, Metformin,,,,, Atorvastatin,,,,, Albuterol,,,,, DulOXETINE,,,,, Hydrocodone-Acetaminohen,,,,, BisOPROLOL Fumerate,,,,, BREo Ellipta,,,,, Allergies: PENICILLIN Cardiac Risk Factors: Hyperlipidemia, Smoking Stress Test Details Test: LEXISCAN HR Resting HR: 57 bpm Max Heart Rate (APMHR): 152.984081 bpm Max HR Achieved: 79 bpm Target HR (85% APMHR): 129.023830 bpm % of APMHR: 51.97 Recovery HR: 69 bpm BP Resting BP: 123/69 mmHg Max BP: 123/69 mmHg Recovery BP: 123.0/62.0 mmHg ECG Resting ECG: SINUS CLARE, OTHERWISE NORMAL Clinical Exercise duration: 04:00 min Highest Stage Achieved: Exercise capacity: 1.0 METs Stress ECG Conclusion PT HAD SOA, NAUSEA. NO CP. NO SIGNIFICANT CHANGES. UNREMARKABLE LEXISCAN STRESS. MYOVIEW IMAGES REPORTED SEPARATELY. Electronically signed by : Buddy Mccarty MD 07/21/2021 11:15:55
== END ==
PROVIDERS: PCP Family Medicine; Visit Provider Nurse Practitioner Family
DX: E11.9 Type 2 diabetes mellitus without complications (principal); E78.5 Hyperlipidemia, unspecified; I20.9 Angina pectoris, unspecified; R06.00 Dyspnea, unspecified; Z95.5 Presence of coronary angioplasty implant and graft; Z79.84 Long term (current) use of oral hypoglycemic drugs
CPT/HCPCS: 78452; 93017; 93306; A9502; J2785

== ENCOUNTER → 2022-06-02 15:28 | Outpatient (CLI) | payer MEDICARE, MEDICAID, SELFPAY ==
--- NOTE | 2022-06-02 15:34 | CT_ITS ---
FINAL REPORT TECHNIQUE: Axial images were obtained from the lung apex to the mid abdomen by computed tomography. This study was performed with techniques to keep radiation doses as low as reasonably achievable (ALARA). Individualized dose reduction techniques using automated exposure control or adjustment of mA and/or kV according to the patient's size were employed. CLINICAL HISTORY: CURRENT SMOKER 1 pk per day x 50 yrs cad, hx of bladder cancer COMPARISON: 04/19/2021 FINDINGS: CHEST CT LOW DOSE CTDI vol (mGy): 2.90 DLP (mGy-cm): 112.29 There is no axillary adenopathy. There is no hilar or mediastinal adenopathy. The heart is normal in size. There is no pericardial or pleural effusion. There is a 2 mm lateral left upper lobe nodule which is stable. There is a 3 mm left midlung nodule well seen on image 50, stable. There is a stable medial left lower lobe nodule measuring 6 mm well seen on image 34. Several other less than 5 mm nodules in the left lower lobe are stable. There is mild scarring and mild emphysema. Limited images of the upper abdomen reveal several hepatic masses, favor cysts. There is a gallstone in the gallbladder. There is a stable right adrenal nodule, likely an adenoma. IMPRESSION: Stable nodules as detailed above. Lung RADS category 2. Recommend 12 month follow-up low-dose chest CT. Reviewed, Interpreted and Dictated by Vitor Rod III, MD Transcribed by Bethany Jones Authenticated and [facility]
== END ==
PROVIDERS: PCP Family Medicine; Visit Provider Family Medicine
DX: Z87.891 Personal history of nicotine dependence (principal); Z12.2 Encounter for screening for malignant neoplasm of respiratory organs
CPT/HCPCS: 71271

== ENCOUNTER → 2022-08-17 13:04 | Outpatient (CLI) | payer MEDICARE, MEDICAID, SELFPAY ==
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
== END ==
PROVIDERS: PCP Family Medicine; Visit Provider Family Medicine
DX: R07.89 Other chest pain (principal); R07.81 Pleurodynia
CPT/HCPCS: 71046; 71100

== ENCOUNTER 2022-08-25 17:33 | Emergency (ER) | payer OTHER, MEDICARE, MEDICAID, SELFPAY ==
[2022-08-25 17:39] VITALS: BMI 23.8
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
[2022-08-25 17:42] VITALS: BP 145/86; PULSE 69; RESP 16; TEMP 36.3; O2SAT 99
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
--- NOTE | 2022-08-25 18:30 | PC.NURSE ---
Patient called out and said he has a severe headache. MD notified V/O for 4mg of morphine IVP and 4mg of zofran IVP
[2022-08-25 19:06] LABS: Microscopic, Urine URINE MICROSCOPIC (MICROSCOPIC)
--- NOTE | 2022-08-25 19:17 | PC.NURSE ---
Report handed off to top edge beveler
[2022-08-25 19:21] LABS: Appearance,Urine CLEAR (Clear); Bilirubin,Urine Negative (Negative); Blood, Urine TRACE-I (Negative); Color,Urine YELLOW (Yellow); Glucose,Urine (UA) Negative (Negative); Ketones,Urine Negative (Negative); Leukocyte Esterase,Urine Negative (Negative); Nitrate,Urine Negative (Negative); Protein,Urine Negative (Negative)
[2022-08-25 19:35] LABS: RBC,Urine Occasional #/hpf (0-3); Squamous Epithelial Cell,Urine Occasional #/hpf (0-5); WBC,Urine Occasional #/hpf (0-3)
[2022-08-25 19:36] LABS: Chloride 109 mmol/L (98-107); Potassium 3.6 mmoL/L (3.5-5.1); Sodium 140 mmol/L (136-145)
--- NOTE | 2022-08-25 19:37 | PC.NURSE ---
Pt ambulated well, complains of right neck pain and right ear pain. Dr webb at bedside
[2022-08-25 19:38] LABS: Blood Urea Nitrogen 5 mg/dl (9-20); Creatinine Clearance Estimated 70 mL/min (50-200); Estimated Glomerular Filt Rate 213 ml/min (>60); GFR (African American) 258 ML/MIN (>60)
[2022-08-25 19:39] LABS: Alanine Aminotransferase 24 U/L (12-78); Albumin Level 3.3 g/dl (3.5-5.0); Albumin/Globulin Ratio 1.2 (1.1-1.8); Alkaline Phosphatase 67 U/L (38-126); Anion Gap 5.6 mEq/L (5-15); Aspartate Amino Transferase 30 U/L (17-59); Bilirubin,Total 0.5 mg/dl (0.2-1.3); Calcium 8.4 mg/dl (8.4-10.2); Carbon Dioxide 29 mmol/L (22.0-30.0); Globulin 2.8 g/dL (1.3-3.2); Glucose 107 mg/dl (74-100); Total Protein,Serum 6.1 g/dl (6.3-8.2)
[2022-08-25 19:40] LABS: Eosinophils # 0.1 K/mm3 (0.0-0.4); Eosinophils % 1.2 % (0.1-12.0); Hematocrit 41.4 % (42.0-52.0); Hemoglobin 13.3 g/dL (14.1-18.0); Lymphocytes # 0.8 K/mm3 (0.7-4.5); Lymphocytes % 8.3 % (10-50); Mean Corpuscular HGB Conc 32.1 g/dL (31.8-35.4); Mean Corpuscular Volume 96.5 fl (80-94); Mean Platelet Volume 9.7 fl (7.4-10.4); Monocytes # 0.4 K/mm3 (0.1-1.0); Monocytes % 4.2 % (1.7-9.3); Neutrophils # 8.8 K/mm3 (1.8-7.8); Neutrophils % 86.3 % (37.0-80.0); Platelet Count 192 K/mm3 (142-424); Red Blood Count 4.28 M/mm3 (4.60-6.20); Red Cell Distribution Width 13.9 % (11.5-17.5); White Blood Count 10.2 K/mm3 (4.8-10.8)
[2022-08-25 19:42] LABS: MANUAL DIFFERENTIAL MANUAL DIFFERENTIAL (MANUAL DIFF)
[2022-08-25 19:46] LABS: INR 1.08 (0.9-1.1); Prothrombin Time 11.6 seconds (10.1-12.5)
[2022-08-25 20:06] LABS: Eosinophils % 1 % (0-3); Lymphocytes % 11 % (10-50); Monocytes % 3 % (2-9); Neutrophils % 85 % (42-76); Platelet Estimate Normal; RBC Morphology Normal; Total Cells Counted 100
[2022-08-25 20:11] VITALS: BP 162/89; PULSE 82; RESP 20; TEMP 36.8; O2SAT 97
--- NOTE | 2022-08-26 10:28 | PC.NURSE ---
[facility] pharmacy called to check and make sure a torodol injection was administered to patient before their dispo.
== END 2022-08-25 20:16 | disposition home or self-care (01) ==
PROVIDERS: Family Medicine; Emergency Provider Emergency Medicine; PCP Internal Medicine
DX: S22.32XA Fracture of one rib, left side, initial encounter for closed fracture (principal); S12.600A Unspecified displaced fracture of seventh cervical vertebra, initial encounter for closed fracture; S00.431A Contusion of right ear, initial encounter; V47.0XXA Car driver injured in collision with fixed or stationary object in nontraffic accident, initial encounter
CPT/HCPCS: 69000; 10140; 70450; 71275; 72125; 74177; 80053; 81001; 85007; 85025; 85610; 96374; 96375; 99285; J2405; Q9967

== ENCOUNTER 2022-12-30 22:10 | Emergency (ER) | payer MEDICARE, MEDICAID, SELFPAY ==
[2022-12-30 22:11] VITALS: BP 155/80; PULSE 73; RESP 16; TEMP 36.8; O2SAT 97; BMI 22.6
--- NOTE | 2022-12-30 22:30 | XR_ITS ---
PROCEDURE INFORMATION: Exam: XR Left Tibia and Fibula Exam date and time: 12/30/2022 10:29 PM Age: 67 years old Clinical indication: Pain; Lower leg; Left; Additional info: Proximal tibial pain after fall TECHNIQUE: Imaging protocol: Radiologic exam of the left tibia and fibula. Views: 2 views. COMPARISON: No relevant prior studies available. FINDINGS: Bones/joints: Patellar tendon appears normal in contour. No evidence of acute fracture or dislocation. No erosive disease. No significant degenerative change. Soft tissues: There is prepatellar soft tissue swelling. IMPRESSION: No acute bony injury. Prepatellar soft tissue swelling is noted.
--- NOTE | 2022-12-30 22:30 | XR_ITS ---
PROCEDURE INFORMATION: Exam: XR Left Knee Exam date and time: 12/30/2022 10:32 PM Age: 67 years old Clinical indication: Pain; Knee; Left; Additional info: Knee pain after fall TECHNIQUE: Imaging protocol: Radiologic exam of the left knee. Views: 3 views. COMPARISON: CR Lower leg L 12/30/2022 10:29 PM FINDINGS: Bones/joints: No evidence of acute fracture or dislocation. No erosive disease. No significant degenerative change. No joint effusion. Soft tissues: Prepatellar soft tissue swelling. IMPRESSION: No acute bony injury. Prepatellar soft tissue swelling is noted but there is no visible joint effusion.
--- NOTE | 2022-12-30 22:30 | XR_ITS ---
PROCEDURE INFORMATION: Exam: XR Left Femur Exam date and time: 12/30/2022 10:33 PM Age: 67 years old Clinical indication: Pain; Thigh; Left; Additional info: Left distal tibial pain/knee pain after fall TECHNIQUE: Imaging protocol: Radiologic exam of the left femur. Views: 2 views. COMPARISON: CR XR KNEE LT 3V 12/30/2022 10:32 PM FINDINGS: Bones/joints: Moderate arthropathy at the left hip. No significant arthropathy of the knee. Intact femur. Soft tissues: Prepatellar soft tissue swelling. Tiny metallic focus noted in the medial subcutaneous fat. IMPRESSION: 1. No acute bony injury. Prepatellar soft tissue swelling. 2. Moderate hip arthropathy.
--- NOTE | 2022-12-30 22:48 | CT_ITS ---
PROCEDURE INFORMATION: Exam: CT Left Lower Extremity Without Contrast, Knee Exam date and time: 12/30/2022 10:58 PM Age: 67 years old Clinical indication: Pain; Knee; Left; Additional info: Fall, proximal tibial pain TECHNIQUE: Imaging protocol: CT of the left lower extremity without contrast was performed. Exam focused on the knee. Radiation optimization: All CT scans at this facility use at least one of these dose optimization techniques: automated exposure control; mA and/or kV adjustment per patient size (includes targeted exams where dose is matched to clinical indication); or iterative reconstruction. REPORTING DATA: Count of CT and Cardiac NM exams in prior 12 months: This patient has received 5 known CTs and 0 known cardiac nuclear medicine studies in the 12 months prior to the current study. COMPARISON: CR XR KNEE LT 3V 12/30/2022 10:32 PM FINDINGS: Bones/joints: No evidence of acute fracture or dislocation. No erosive disease. No significant degenerative change. Soft tissues: Prepatellar and pretibial soft tissue swelling. No joint effusion. IMPRESSION: Prepatellar and pretibial soft tissue swelling. No acute bony injury. No joint effusion to suggest additional internal derangement of the knee.
--- NOTE | 2022-12-30 22:58 | HMH.EDGENADL ---
Discharge Plan Disposition Patient Disposition: Home, Self-Care Condition: Good Prescriptions Prescriptions: No Action metformin 500 mg tablet 500 mg PO BID duloxetine 30 mg capsule,delayed release(DR/EC) 30 mg PO DAILY hydrocodone-acetaminophen 7.5-325 mg tablet 1 tab PO TID aspirin [Adult Low Dose Aspirin] 81 mg tablet,delayed release (DR/EC) 81 mg PO DAILY Qty: 30 5RF bisoprolol fumarate 5 mg tablet 5 mg PO QDAY Qty: 90 3RF atorvastatin 40 MG tablet 40 mg PO HS levothyroxine 25 MCG tablet 25 mcg PO DAILY albuterol sulfate 90 MCG HFA aerosol inhaler 2 puffs PO QID fluticasone furoate-vilanterol 100-25M blister with device 1 inh PO DAILY methocarbamol 500 mg tablet 500 mg PO Q8H Qty: 90 0RF ketorolac 10 mg tablet 10 mg PO Q6H PRN (Reason: pain) 4 Days Qty: 10 0RF Referrals Follow up/Referrals: Praneeth Aiken DO [Staff Physician] - See instructions Joe Prince [Primary Care Provider] - See instructions Activity Restrictions/Add. Instructions Additional Instructions/Restrictions: Call your family doctor to establish care for this visit to the emergency department and schedule follow-up within 48 hours to ensure improvement. If you have any worsening of your condition or any other concerning signs or symptoms, return to the emergency department or your primary care doctor for further evaluation. Take Tylenol 1000 mg every 6 hours (4 times daily) and ibuprofen 400 mg every 6 hours (4 times daily) as needed with food and water to prevent GI upset and kidney damage. Clinical Impressions Clinical Impression: Effusion of knee joint, left Left knee injury Qualifiers: Encounter type: initial encounter Qualified Code(s): S89.92XA - Unspecified injury of left lower leg, initial encounter Instructions Patient Instructions: DI for Knee Sprain, DI for Hematoma (Bruise) Discharge ED Provider: Cristopher Lindsey General Adult HPI <Cristopher Lindsey MD - Last Filed: 12/30/22 23:26> General Chief complaint: Extremity Injury, Lower Stated complaint: AO11/16 LT knee inj Time Seen by Provider: 12/30/22 22:16 Mode of Arrival: Wheelchair Source of Information: Patient Limitations: No Limitations Description of Symptoms (Recalled from ER Triage Doc. by RN): pt reports trip and fall in tall grass yesterday, now having knee pain and swelling History of Present Illness HPI narrative: 67-year-old male history of hypertension, hyperlipidemia, CAD, PAD on 81 mg daily aspirin presenting with left knee injury. Patient states that 1 night prior to arrival on 12/29, he slipped. Landed knee first onto grass. Has been able to bear weight, but knee is getting significantly more swollen. States that today, pain was severe when bearing weight and all around his knee. Because of the swelling and pain, came to the emergency department for further evaluation to make sure is not broken. Related Data Home Medications Medication Instructions Recorded Confirmed albuterol sulfate 90 mcg/actuation 2 puffs PO QID COPD 12/16/17 11/28/22 aerosol inhaler atorvastatin 40 mg tablet 40 mg PO HS Cholesterol 12/16/17 11/28/22 fluticasone furoate 100 1 inh PO DAILY SOB 12/16/17 11/28/22 mcg-vilanterol 25 mcg/dose inhalation powder levothyroxine 25 mcg tablet 25 mcg PO DAILY THYROID 12/16/17 11/28/22 duloxetine 30 mg capsule,delayed 30 mg PO DAILY 07/07/21 11/28/22 release hydrocodone 7.5 mg-acetaminophen 1 tab PO TID 07/07/21 11/28/22 325 mg tablet metformin 500 mg tablet 500 mg PO BID 07/07/21 11/28/22 Previous Rx's Medication Instructions Recorded aspirin 81 mg tablet,delayed 81 mg PO DAILY #30 tabs 07/07/21 release (Adult Low Dose Aspirin) bisoprolol fumarate 5 mg tablet 5 mg PO QDAY #90 tabs 01/18/22 ketorolac 10 mg tablet 10 mg PO Q6H PRN pain 4 days #10 08/25/22 tabs methocarbamol 500 mg tablet 500 mg PO Q8H #90 tabs 08/25/22 Allergies Allergy/AdvReac Typ
[2022-12-31 00:05] VITALS: BP 143/74; PULSE 61; RESP 16; TEMP 36.8; O2SAT 96
== END 2022-12-31 00:12 | disposition home or self-care (01) ==
PROVIDERS: Emergency Provider Emergency Medicine; PCP Family Medicine
DX: S89.92XA Unspecified injury of left lower leg, initial encounter (principal); M25.462 Effusion, left knee; I25.10 Atherosclerotic heart disease of native coronary artery without angina pectoris; I11.9 Hypertensive heart disease without heart failure; E78.5 Hyperlipidemia, unspecified; I73.9 Peripheral vascular disease, unspecified; F17.210 Nicotine dependence, cigarettes, uncomplicated; W01.198A Fall on same level from slipping, tripping and stumbling with subsequent striking against other object, initial encounter
CPT/HCPCS: 73552; 73562; 73590; 73700; 96372; 99284

== ENCOUNTER → 2023-01-24 16:12 | Outpatient (CLI) | payer MEDICARE, MEDICAID, SELFPAY ==
--- NOTE | 2023-01-24 16:19 | MR_ITS ---
FINAL REPORT CLINICAL HISTORY: Lt Knee Pain. ANTERIOR KNEE PAIN. KNEE INSTABILITY COMPARISON: None FINDINGS: Multi planar MR imaging was performed of the left knee. The anterior and posterior cruciate ligaments are intact. The quadriceps and patellar tendons are intact. There is a large oblique tear of the posterior horn of the medial meniscus. The lateral meniscus is intact. The medial and lateral collateral ligaments appear intact. The medial and lateral retinacula appear intact. There is no evidence of bone marrow edema or osteochondral defect. There is edema over the anterior patella extending to the insertion of the quadriceps tendon. Axial images show fluid overlying the medial retinaculum and distal vastus medialis muscle up to 9 mm in depth, seen best on image #110 of series 3. IMPRESSION: Large oblique tear posterior horn medial meniscus. Edema and focal fluid overlying the anterior patella extending to the insertion of the quadriceps tendon. There is also fluid overlying the medial retinaculum and the distal vastus medialis as described, measuring up to 9 mm in depth. Reviewed, Interpreted and Dictated by Rupesh Green MD Transcribed by Sandra Paredes Authenticated and [facility]
== END ==
LOC: RAD 16:12
PROVIDERS: PCP Family Medicine; Visit Provider Orthopaedic Surgery
DX: M23.92 Unspecified internal derangement of left knee (principal)
CPT/HCPCS: 73721

== ENCOUNTER 2023-03-21 15:29 | Outpatient (CLI) | payer MEDICARE, MEDICAID, SELFPAY ==
--- NOTE | 2023-03-21 15:48 | ECG_ITS ---
APPROVED REPORT Exam: Resting ECG HR:67 bpm ECG Measurements Heart Rate 67 AXES VT 166 P 70 QRSd 86 QRS 92 QT 372 T 71 QTc 388 Conclusion SINUS RHYTHM BORDERLINE RIGHT AXIS DEVIATION [QRS AXIS > 90] BORDERLINE ECG UNCONFIRMED REPORT Electronically signed by : Jayme Levin MD 03/22/2023 21:46:39
--- NOTE | 2023-03-21 16:09 | XR_ITS ---
FINAL REPORT CLINICAL HISTORY: Pre Op hx asthma, heart stent COMPARISON: 08/17/2022 FINDINGS: Two views of the chest were obtained. The heart size and pulmonary vascularity are within normal limits. The mediastinum is normal. The lungs are hyperinflated consistent with COPD. No acute pulmonary abnormality is identified. There is no pneumothorax. The bony thorax is intact. IMPRESSION: No active cardiopulmonary disease. Hyperinflated lungs consistent with COPD. Reviewed, Interpreted and Dictated by Vitor Rod III, MD Transcribed by Aure Yan Authenticated and [facility]
[2023-03-21 16:37] LABS: Basophils % 0.4 % (0.1-2.0); Eosinophils # 0.1 K/mm3 (0.0-0.4); Eosinophils % 1.3 % (0.1-12.0); Hemoglobin 16.2 g/dL (14.1-18.0); Lymphocytes # 1.9 K/mm3 (0.7-4.5); Lymphocytes % 21.9 % (10-50); Mean Corpuscular HGB Conc 32.3 g/dL (31.8-35.4); Mean Corpuscular Hemoglobin 32.7 pg (27.0-31.2); Mean Corpuscular Volume 101.2 fl (80-94); Mean Platelet Volume 9.6 fl (7.4-10.4); Monocytes # 0.6 K/mm3 (0.1-1.0); Monocytes % 7.1 % (1.7-9.3); Neutrophils # 5.9 K/mm3 (1.8-7.8); Neutrophils % 69.4 % (37.0-80.0); Platelet Count 190 K/mm3 (142-424); Red Blood Count 4.94 M/mm3 (4.60-6.20); Red Cell Distribution Width 13.4 % (11.5-17.5); White Blood Count 8.5 K/mm3 (4.8-10.8)
[2023-03-21 17:44] LABS: Chloride 103 mmol/L (98-107); Potassium 5.3 mmoL/L (3.5-5.1); Sodium 139 mmol/L (136-145)
[2023-03-21 17:46] LABS: Blood Urea Nitrogen 10 mg/dl (9-20); Estimated Glomerular Filt Rate 133 ml/min (>60); GFR (African American) 161 ML/MIN (>60)
[2023-03-21 17:47] LABS: Alanine Aminotransferase 28 U/L (12-78); Albumin Level 3.8 g/dl (3.5-5.0); Albumin/Globulin Ratio 1.4 (1.1-1.8); Alkaline Phosphatase 52 U/L (38-126); Anion Gap 6.3 mEq/L (5-15); Aspartate Amino Transferase 31 U/L (17-59); Bilirubin,Total 0.4 mg/dl (0.2-1.3); Calcium 9.5 mg/dl (8.4-10.2); Carbon Dioxide 35 mmol/L (22.0-30.0); Globulin 2.7 g/dL (1.3-3.2); Glucose 100 mg/dl (74-100); Total Protein,Serum 6.5 g/dl (6.3-8.2)
== END 2023-03-21 23:59 ==
LOC: LAB 15:30
PROVIDERS: PCP Family Medicine; Visit Provider Orthopaedic Surgery
DX: S83.232A Complex tear of medial meniscus, current injury, left knee, initial encounter; Z01.818 Encounter for other preprocedural examination; M25.562 Pain in left knee
CPT/HCPCS: 36415; 71046; 80053; 85025; 93005

== ENCOUNTER 2023-03-27 10:48 | Day surgery (SDC) | payer MEDICARE, MEDICAID, SELFPAY ==
[2023-03-23 10:14] VITALS: BMI 23.1
[2023-03-27] VITALS (9 sets, daily range): BP systolic 106–139; BP diastolic 61–82; PULSE 70–86; RESP 14–20; TEMP 35.8–36.5; O2SAT 90–97
[2023-03-27 11:18] LABS: POC Glucose,Bedside 104 (70-110)
[2023-03-27] MEDS: LACTATED RINGERS 1000ML 1,000 ML 25 ML IV (11:26)
[2023-03-27] MEDS: CLINDAMYCIN PHOSPHATE/D5W 900 MG/50 ML PIGGYBACK 106 MG IV (12:51)
[2023-03-27] MEDS: BUPIVACAINE 0.25% 30ML VIAL 75 MG (12:52)
[2023-03-27] MEDS: RINGERS SOLUTION,LACTATED 6,000 ML 6000 ML IR (12:52)
--- NOTE | 2023-03-27 13:14 | EXP.OP.NOTE ---
Date of procedure: 03/27/23 Pre-op Diagnosis:: Left knee posterior horn medial meniscus tear Post-op Diagnosis:: Same Procedure performed:: Left knee arthroscopy with partial medial meniscectomy Surgeon:: Praneeth Aiken DO QUALITY CONTROL SYSTEMS MANAGER:: Other Anesthesia: GETA Estimated blood loss (mL): 0 Operative findings:: Large oblique tear posterior horn medial meniscus Operative note:: Patient is identified preoperative. Left knee marked with yes my initials. Transferred operative suite. Placed upon operating bed. General anesthesia ministered airway secured. Left lower extremity prepped draped normal sterile fashion. Once prepped and draped final operative timeout performed to identify proper patient procedure and extremity. Everyone involved the case agreed. No counter indications beginning. Did receive preoperative antibiotics. Marking pen was used to timothy bony landmarks of the knee and standard portal sites. Esmarch was used to exsanguinate the extremity and pneumatic tourniquet inflated to 300 mmHg. Skin knife was used incise anterior lateral portal and blunt with trocar was placed in the patellofemoral joint. Diagnostic arthroscopy began. Swept into the medial joint line where the anterior medial portal was made under direct visualization with 18-gauge spinal needle. Then placed a probe in the medial joint line. Within the medial joint line there was a large oblique tear of the posterior horn the medial meniscus. Using a combination of straight biter sucker shaver partial medial meniscectomy was performed back to stable rim. There is evidence of a small area of chondromalacia adjacent to the meniscus tear on the medial femoral condyle with very small amount of fraying cartilage which was lightly debrided with sucker shaver. Attention was then brought to the lateral joint line Upon speaking to the lateral joint line the intercondylar notch the ACL was seen and intact in the lateral joint line the lateral cartilage was intact lateral meniscus was intact. Scope into the medial lateral gutters back in the patellofemoral joint no further pathology was seen. Camera was removed. Joint was drained. Local anesthesia infiltrated the portal sites. Skin was closed with nylon stitch. Sterile dressing placed from toe to thigh patient waken anesthesia taken recovery in stable condition. Tourniquet time (min): 15 Condition: stable Disposition: PACU Complications:: None apparent
--- NOTE | 2023-03-27 13:15 | P.PNANES_ITS ---
[facility] Anesthesia Record Part I Anesthesia Record I Intake, IV Amount: 600 Hydration: Adequate Estimated blood loss (mL): 15 Urine output (mL): 0 Blood Products used (#): none Blood Pressure: 131/71 SaO2: 95 Pulse Rate: 75 Airway Patency: Patent Respiratory Rate: 20 Temperature: 97.0 F Patient is:: Awake, Drowsy and Stable Stable to PACU at:: 13:17
--- NOTE | 2023-03-27 13:21 | P.PNANES_ITS ---
[facility] Disclaimer: The information contained in this section may have been updated after the patient was seen, as this information can be updated by other users. Medical History (Updated 03/27/23 @ 11:25 by Sandy Valladares RN) Allergies Asthma Bladder cancer Diabetes mellitus, type 2 Ear abrasion History of cataract Hyperlipidemia Hypertension Hypothyroid Presence of artificial eye Surgical History (Updated 03/27/23 @ 11:30 by Sandy Valladares RN) H/O neck surgery History of appendectomy History of surgery History of surgery History of surgery History of tracheostomy Family History Other Family history of cancer Family history of stroke Social History (Updated 03/27/23 @ 11:25 by Sandy Valladares RN) Smoking Status: Current every day smoker tobacco type: cigarettes packs per day: 50 alcohol intake: never substance use type: denies use current occupational status: disabled Travel in the last 8 weeks: None housing: other [facility] Anesthesia Checklist Patient Identification Patient Identification: Arm Band, Family and Verbal (Name & ) Structural Data Admitted From: Home Planned Operative Procedure/s: Left Knee scope Consent for Planned Operative Procedure(s) Verified: Yes Verified Documents: Surgical Consent and History and Physical NPO Status Verified Time NPO: 12:00 Chart Verification Results Verified: CBC, BMP, ECG and Chest Xray Additional verifications Fingerstick Blood Glucose: 104 Patient : No Anesthesia Reactions: No Hx Blood Transfusions: Yes Blood Transfusion Reaction: No Cardiovascular Assessment Heart Sounds: S1 & S2 Pulse Rhythm: Irregular Peripheral Edema: No Airway Assessment Mallampati Score:: Class II C-Spine Mobility Assessed: Yes TMJ Mobility Assessed: Yes Dentition: Edentulous Neurological Assessment Level of Consciousness: Awake, Alert, Appropriate and Follows Commands Hx Seizures: No Numbness or tingling in extremities: No Anesthesia Plan Anesthesia Risk discussed: Yes Anesthesia Plan: Verified ASA Class: III Anesthesia Type: General
[2023-03-27 13:22] LABS: POC Glucose,Bedside 108 (70-110)
--- NOTE | 2023-03-27 14:52 | P.PNANES_ITS ---
[facility] Anesthesia Record Part I Anesthesia Record I Intake, IV Amount: 400 Hydration: Adequate Estimated blood loss (mL): 25 Urine output (mL): 0 Blood Products used (#): none Blood Pressure: 106/61 SaO2: 90 Pulse Rate: 70 Airway Patency: Patent Respiratory Rate: 14 Temperature: 96.5 F Patient is:: Awake and Stable Stable to PACU at:: 14:47
--- NOTE | 2023-03-28 13:50 | EXP.ANES.II ---
[facility] Anesthesia Record Part II Anesthesia Record Part II Discharge Time: 13:32 Destination: Surgical Day Care (OP Surgery) PACU nurse assessment reviewed?: Yes Patient Condition:: Good Anesthesia Complications:: None Swallowing reflex intact?: Yes Airway Patency: Patent Cyanosis?: No Blood Pressure: 123/76 SaO2: 95 Respiratory Rate: 18 Pulse Rate: 95 Temperature: 97.4 F Mental Status: Alert & Oriented Pain level:: 0 Nausea and/or vomitting:: None Intake, IV Amount: 0 Hydration: Adequate
[2023-03-28 13:51] VITALS: BP 123/76; PULSE 95; RESP 18; TEMP 36.3; O2SAT 95
== END 2023-03-27 14:12 | disposition home or self-care (01) ==
PROVIDERS: PCP Family Medicine; Visit Provider Orthopaedic Surgery
PROC: (CPT 29870; principal; 2023-03-27 12:15)
DX: S83.232A Complex tear of medial meniscus, current injury, left knee, initial encounter (principal); E11.9 Type 2 diabetes mellitus without complications; Z79.84 Long term (current) use of oral hypoglycemic drugs; Z79.899 Other long term (current) drug therapy; F17.210 Nicotine dependence, cigarettes, uncomplicated
CPT/HCPCS: 29881; 82962; 96374

== ENCOUNTER 2023-04-18 15:40 | Outpatient (CLI) | payer MEDICARE, MEDICAID, SELFPAY ==
--- NOTE | 2023-04-18 15:51 | XR_ITS ---
FINAL REPORT CLINICAL HISTORY: right hip fx FINDINGS: Right hip Three views were obtained. There is no acute fracture or dislocation. There are moderate degenerative changes in the lower lumbar spine and both hips. There is chronic deformity of the left iliac wing. No soft tissue abnormality is identified. IMPRESSION: Degenerative and chronic appearing findings. If indicated, CT could further evaluate. Reviewed, Interpreted and Dictated by Vitor Rod III, MD Transcribed by Bethany Jones Authenticated and . [facility]
== END 2023-04-18 23:59 ==
LOC: RAD 15:42
PROVIDERS: PCP Family Medicine; Visit Provider Orthopaedic Surgery
DX: M25.551 Pain in right hip (principal)
CPT/HCPCS: 73502

== ENCOUNTER 2023-06-05 08:38 | Day surgery (SDC) | payer MEDICARE, MEDICAID, SELFPAY ==
[2023-06-05 08:55] VITALS: BP 158/87; PULSE 58; RESP 18; TEMP 36.1; O2SAT 98; BMI 23.8
[2023-06-05 09:04] LABS: POC Glucose,Bedside 99 (70-110)
[2023-06-05] MEDS: LACTATED RINGERS 1000ML 1,000 ML 25 ML IV (09:09)
--- NOTE | 2023-06-05 09:24 | P.PNANES_ITS ---
[facility] Disclaimer: The information contained in this section may have been updated after the patient was seen, as this information can be updated by other users. Medical History Hypothyroid Diabetes mellitus, type 2 History of cataract RIGHT EYE Allergies Hyperlipidemia Hypertension Bladder cancer Presence of artificial eye Asthma Ear abrasion Healing/old bruising Surgical History History of tracheostomy PLACED AND REMOVED. History of surgery History of surgery BONE REMOVED FROM PELVIS LEFT SIDE OF EYE SOCKET H/O neck surgery History of surgery STENT X1 History of appendectomy Family History Other Family history of cancer Family history of stroke Social History (Updated 06/05/23 @ 08:56 by Sandy Valladares RN) Smoking Status: Current every day smoker tobacco type: cigarettes packs per day: 50 alcohol intake: never substance use type: denies use current occupational status: retired and disabled Travel in the last 8 weeks: None housing: other [facility] Anesthesia Checklist Patient Identification Patient Identification: Verbal (Name & ) Structural Data Admitted From: Home Planned Operative Procedure/s: r hip injection Consent for Planned Operative Procedure(s) Verified: Yes NPO Status Verified Time NPO: 00:00 Additional verifications Anesthesia Reactions: No Hx Blood Transfusions: Yes Blood Transfusion Reaction: No Airway Assessment Mallampati Score:: Class II C-Spine Mobility Assessed: Yes TMJ Mobility Assessed: Yes Dentition: Edentulous Neurological Assessment Level of Consciousness: Awake, Alert and Appropriate Anesthesia Plan Anesthesia Risk discussed: Yes Anesthesia Plan: Verified ASA Class: III Anesthesia Type: MAC
[2023-06-05] MEDS: LIDOCAINE 1% 10ML MDV 10 ML ×2 (09:33)
[2023-06-05] MEDS: TRIAMCINOLONE ACET 40MG/ML VIAL 80 MG (09:33)
--- NOTE | 2023-06-05 09:46 | P.OP_ITS ---
Date of procedure: 06/05/23 Pre-op Diagnosis:: Right hip osteoarthritis Post-op Diagnosis:: Same Procedure performed:: Right hip injection with arthrogram x-ray guidance for needle placement Surgeon:: Praneeth Aiken DO LABORER PETROLEUM REFINERY:: Kelsea Jara Anesthesia: MAC Estimated blood loss (mL): 0 Operative findings:: Severe osteoarthritis right hip Operative note:: Patient was identified preoperatively. Right hip marked with a yes and my initials. Transferred operative suite placed upon the radiolucent bed. Given sedation. Right hip was then prepped and draped in normal sterile fashion. Once prepped and draped final operative timeout performed to identify proper patient procedure and extremity. Everyone involved the case agreed. Is no count indication beginning. X-ray was brought into identify the right hip joint. 18-gauge spinal needle was then directed with a proper trajectory into the hip capsule. X-ray was used for needle placement arthrogram was performed to confirm needle placement within the capsule once confirmed hip was injected with 80 mg Kenalog 3 cc of 1% lidocaine. Needle removed Band-Aid placed patient waken for sedation taken recovery stable condition. Condition: stable Disposition: PACU Complications:: None apparent
[2023-06-05 09:53] VITALS: BP 121/70; PULSE 67; RESP 14; O2SAT 97
--- NOTE | 2023-06-05 09:56 | FL_ITS ---
FINAL REPORT CLINICAL HISTORY: HIP INJECTION IN OR FINDINGS: FLUOROSCOPY LESS THAN 1 HOUR HISTORY: Fluoroscopy guidance. Fluoroscopic guidance was provided for hip injection in the OR. A single spot film was obtained. A total of 0.0 minutes of fluoroscopy time were used. Total DAP: 0.84 mGy IMPRESSION: As above. Reviewed, Interpreted and Dictated by Rupesh Green MD Transcribed by Aure Yan Authenticated and [facility]
--- NOTE | 2023-06-05 10:02 | EXP.ANES.I ---
[facility] Anesthesia Record Part I Anesthesia Record I Intake, IV Amount: 400 Hydration: Adequate Estimated blood loss (mL): 1 Urine output (mL): 0 Blood Products used (#): none Blood Pressure: 123/68 SaO2: 97 Pulse Rate: 68 Airway Patency: Patent Respiratory Rate: 16 Temperature: 98.5 F Patient is:: Awake and Stable Stable to PACU at:: 09:58
[2023-06-05 10:03] VITALS: BP 127/69; PULSE 70; RESP 16; O2SAT 97
[2023-06-05 10:05] VITALS: BP 123/68; PULSE 68; RESP 16; TEMP 36.9; O2SAT 97
[2023-06-05 10:09] VITALS: BP 118/68; PULSE 73; RESP 16; O2SAT 97
== END 2023-06-05 10:11 | disposition home or self-care (01) ==
PROVIDERS: PCP Family Medicine; Visit Provider Orthopaedic Surgery
PROC: (CPT 27095; principal; 2023-06-05 10:00)
DX: M16.11 Unilateral primary osteoarthritis, right hip (principal); E11.9 Type 2 diabetes mellitus without complications; I10 Essential (primary) hypertension; E78.5 Hyperlipidemia, unspecified; F17.210 Nicotine dependence, cigarettes, uncomplicated; Z79.84 Long term (current) use of oral hypoglycemic drugs; Z79.899 Other long term (current) drug therapy
CPT/HCPCS: 27095; 76000; 82962

== ENCOUNTER 2023-10-20 11:33 | Emergency (ER) | payer MEDICARE, SELFPAY ==
[2023-10-20 11:35] VITALS: BP 163/91; PULSE 77; RESP 18; TEMP 36.6; O2SAT 95; BMI 24.7
--- NOTE | 2023-10-20 12:09 | HMH.EDGENADL ---
Discharge Plan Disposition Patient Disposition: Home, Self-Care Prescriptions Prescriptions: New prednisone 20 mg tablet 20 mg PO DAILY 5 Days Qty: 5 0RF lidocaine 5 % adhesive patch,medicated 1 patch topical DAILY Qty: 30 0RF Rx Instructions: leave on most painful area for up to 12 hrs No Action metformin 500 mg tablet 500 mg PO BID duloxetine 30 mg capsule,delayed release(DR/EC) 30 mg PO DAILY aspirin [Adult Low Dose Aspirin] 81 mg tablet,delayed release (DR/EC) 81 mg PO DAILY Qty: 30 5RF hydrocodone-acetaminophen 10-325 mg tablet 1 tab PO TID bisoprolol fumarate 5 mg tablet 5 mg PO QDAY Qty: 90 3RF atorvastatin 40 MG tablet 40 mg PO HS levothyroxine 25 MCG tablet 25 mcg PO DAILY methocarbamol 500 mg tablet 500 mg PO Q8H Qty: 90 0RF Referrals Follow up/Referrals: Joe Prince [Primary Care Provider] - See instructions Activity Restrictions/Add. Instructions Additional Instructions/Restrictions: Prednisone each morning for the next 5 days. Keep ice on your sugars to make sure they do not get too high. Call your family doctor to establish care for this visit to the emergency department and schedule follow-up within 48 hours to ensure improvement. If you have any worsening of your condition or any other concerning signs or symptoms, return to the emergency department or your primary care doctor for further evaluation. Clinical Impressions Clinical Impression: Muscle spasm Print Language Print Language: Thai Discharge ED Provider: Cristopher Lindsey General Adult HPI General Chief complaint: Headache Stated complaint: pain in left shoulder, neck and head Time Seen by Provider: 10/20/23 11:53 Mode of Arrival: Ambulatory Source of Information: Patient and Relative Limitations: No Limitations Description of Symptoms (Recalled from ER Triage Doc. by RN): c/o right shoulder pain shooting across his neck into his head that feels like you are stabbing him for 3 days, denies any new activity or injury History of Present Illness HPI narrative: Please note that above description of symptoms, in this electronic medical record under categorization of recalled from ER triage doctor by RN are reflective of an initial nursing assessment, however, is not reflective of my full history and physical exam that was personally taken and clarified. Consequentially, this preceding description of symptoms, which may include the patient's categorized chief complaint in the EMR, do not reflect my personal clinical impression, and the ultimate description of history of present illness and patient stated complaints should be deferred to this section of the note. Unless stated otherwise or congruent with this section of the note, additional signs, symptoms, or incongruence should be interpreted as inaccurate with my clinical impression. Related Data Home Medications ?Medication ?Instructions ?Recorded ?Confirmed atorvastatin 40 mg tablet 40 mg PO HS Cholesterol 12/16/17 08/07/23 levothyroxine 25 mcg tablet 25 mcg PO DAILY THYROID 12/16/17 08/07/23 duloxetine 30 mg capsule,delayed 30 mg PO DAILY 07/07/21 08/07/23 release metformin 500 mg tablet 500 mg PO BID 07/07/21 08/07/23 hydrocodone 10 mg-acetaminophen 1 tab PO TID 08/07/23 08/07/23 325 mg tablet Previous Rx's ?Medication ?Instructions ?Recorded aspirin 81 mg tablet,delayed 81 mg PO DAILY #30 tabs 07/07/21 release (Adult Low Dose Aspirin) bisoprolol fumarate 5 mg tablet 5 mg PO QDAY #90 tabs 01/18/22 methocarbamol 500 mg tablet 500 mg PO Q8H #90 tabs 08/25/22 lidocaine 5 % topical patch 1 patch topical DAILY #30 ea 10/20/23 prednisone 20 mg tablet 20 mg PO DAILY 5 days #5 tabs 10/20/23 Allergies Allergy/AdvReac Type Severity Reaction Status Date / Time Penicillins Allergy Rash Verified 08/07/23 14:39 [facility] Disclaimer: The information contained in this section may have been updated after the patient was seen, as this information can be updated by other users. Medical History Hypothyroid Diabetes mellitus, type 2 History of cataract RIGHT EYE Allergies Hyperlipidemia Hypertension Bladder cancer Presence of artificial eye Asthma Ear abrasion Healing/old bruising Surgical History History of tracheostomy PLACED AND REMOVED. History of surgery History of surgery BONE REMOVED FROM PELVIS LEFT SIDE OF EYE SOCKET H/O neck surgery History of surgery STENT X1 History of appendectomy Family History Other Family history of cancer Family history of stroke Social History (Reviewed 08/07/23 @ 14:39 by Dior Perez Smoking Status: Current every day smoker tobacco type: cigarettes packs per day: 50 alcohol intake: never substance use type: denies use current occupational status: retired and disabled Travel in the last 8 weeks: None housing: other ROS Obtained: Yes All systems reviewed & no additional complaints except as documented Physical Exam General General appearance: alert Head Head exam: atraumatic and normocephalic Eye Eye exam: Absent normal appearance (chronic changes s/p L enucleation) Neck Neck exam: Present normal inspection, full ROM, trachea midline and tenderness (bilateral paraspinal tenderness, palpable knot in L trapezius. tenderness throughout L trapezius); Absent meningismus, lymphadenopathy, thyromegaly or other Respiratory Respiratory exam: Present normal lung sounds bilaterally; Absent respiratory distress, wheezes, stridor, accessory muscle use or prolonged expiratory phase Cardiovascular Cardiovascular exam: Present regular rate, normal rhythm and other (Pulses equal symmetric in upper and lower extremities) Abdominal Exam Abdominal exam: Present soft; Absent distention, tenderness or pulsatile mass Extremities Exam Extremities exam: Absent edema Neurological Exam Neurological exam: Present alert, oriented X3 and CN II-XII intact; Absent motor sensory deficit Skin Skin exam: Present warm and dry; Absent diaphoresis or erythema Medical Decision Making Medical Records Medical records reviewed: Yes I reviewed the patient's medical records. Lan Inquiry Pt receiving controlled substance: No Lan was queried for this patient: No Vital Signs: 10/20/23 11:35 10/20/23 12:22 Temperature 97.9 F 97.9 F Temperature Source Oral Pulse Rate 72 Pulse Rate [Left Radial] 77 Respiratory Rate 18 16 Blood Pressure 163/84 H Blood Pressure [Right Arm] 163/91 H Blood Pressure Mean [Right Arm] 115 Blood Pressure Source [Right Arm] Automatic Cuff Blood Pressure Position [Right Arm] Sitting 02 Sat by Pulse Oximetry 95 Oxygen Delivery Method Room Air Room Air Orders (Tests/Meds): ED MEDICATIONS Discontinued Medications Generic Name Dose Route Start Last Admin Trade Name Freq PRN Reason Stop Dose Admin Lidocaine 1 each 10/20/23 12:08 10/20/23 12:17 Lidocaine 5% Transdermal Patch TP 10/20/23 12:09 1 each ONCE ONE Administration Prednisone 40 mg 10/20/23 12:08 10/20/23 12:17 Prednisone 20mg Tab PO 10/20/23 12:09 40 mg ONCE ONE Administration Medical Decision Narrative: This is a 68-year old male with history of hypertension, hyperlipidemia, diabetes, chronic neck and back pain secondary to osteoarthritis presenting with neck pain and tenderness. Patient states he may have slept wrong on his neck. Has been popping his neck all morning turning his head left and right, had some pain when he turned it toward the right just prior to arrival. Patient states the pain is mild to moderate does not radiate, having intermittent headache at the base of his skull. Has had this before. No neurologic deficits, syncope, new vision changes, chest pain, shortness of breath, fevers or chills, or any other concerns. History obtained with patient and family. On arrival, patient very well-appearing. He is neurologically intact at his baseline. He has tenderness about bilateral trapezius muscles, primarily at occipital condyle insertion, but also throughout body of trapezius muscles, left greater than right. He does have a palpable knot in his left trapezius muscle just at the base of his neck. No strength deficits in his upper extremities or lower extremities. I feel confident this represents a radiculopathy from known cervical disc disease that has been previously noted to be inoperable by spinal surgeons. Patient to be given steroid and precautions to be given for watching glucose over the next several days while taking steroid. Also given lidocaine patches out of concern for combining steroids and muscle relaxer, like Robaxin, and elderly patient and concern for potential iatrogenic delirium. Because patient at baseline without signs or symptoms of clinical decompensation, deemed appropriate for discharge. Results were relayed to patient who voiced understanding and were agreeable to outpatient management and follow up. I discussed my clinical impression with patient and answered all questions. At this time, the evidence for any other entities in the differential is insufficient to warrant any further testing or ED observation. This was explained as well. Advisory was given that persistent or worsening symptoms require further evaluation. I confirmed the understanding of this discussion. Desulfurizer Machine disclaimer Much of this encounter note is an electronic corn cutter operator spoken language to printed text. Electronic corn cutter operator of the spoken language may permit errors. Although I have reviewed the note, some errors may still exist. Critical Care Critical Care Time Critical Care Time: No
[2023-10-20] MEDS: LIDOCAINE 5% TRANSDERMAL PATCH 1 EACH TP (12:17)
[2023-10-20] MEDS: predniSONE 20MG TAB 40 MG PO (12:17)
[2023-10-20 12:22] VITALS: BP 163/84; PULSE 72; RESP 16; TEMP 36.6; O2SAT 96
== END 2023-10-20 12:23 | disposition home or self-care (01) ==
PROVIDERS: Emergency Provider Emergency Medicine; PCP Family Medicine
DX: R51.9 Headache, unspecified (principal); M54.2 Cervicalgia; M25.511 Pain in right shoulder; M62.838 Other muscle spasm; E03.9 Hypothyroidism, unspecified; E11.36 Type 2 diabetes mellitus with diabetic cataract; E78.5 Hyperlipidemia, unspecified; I10 Essential (primary) hypertension; F17.210 Nicotine dependence, cigarettes, uncomplicated; G89.29 Other chronic pain
CPT/HCPCS: 99283

== ENCOUNTER → 2023-12-13 08:02 | Day surgery (SDC) | payer MEDICARE, SELFPAY ==
[2023-12-13] VITALS (9 sets, daily range): BP systolic 129–175; BP diastolic 71–95; PULSE 53–61; RESP 18–20; TEMP 36.1; O2SAT 95–97; BMI 25.4
--- NOTE | 2023-12-13 07:03 | IR_ITS ---
APPROVED REPORT Patient Location: Outpatient [facility] Specialist: Natan Cueto RT (R) PROCEDURES Selective coronary angiogram Drug-eluting stent deployment to the proximal and mid dominant right coronary artery in a contiguous manner Drug-eluting stent deployment to the proximal LAD INDICATION Coronary artery disease, Angina pectoris, Informed consent was obtained prior to the procedure. COMPLICATIONS NONE Estimated Blood Loss: LESS THAN 10 ML TECHNIQUE One percent lidocaine used to anesthetize the right anterior aspect of the wrist. The right radial artery was accessed via the Seldinger technique. A 6 [place] sheath was placed in the right radial artery. 2.5 mg of Verapamil, 800 mcg of nitroglycerin, 1mg Lidocaine and 5000 U Heparin were given through the arterial sheath. The 6 [place] JL 3 guide catheter was used to perform selective coronary angiogram. At the end of the diagnostic angiogram therapeutic heparin was administered giving a therapeutic ACT and the guide catheter was placed in the right coronary artery followed by Choice PT extra-support wire placed distally. A 4 mm x 38 mm [place] frontier stent was deployed at 16 radha reducing the stenosis. An additional 4.5 x 26 mm [place] frontier stent was placed proximal to this yet still overlapping and deployed at 16 radha. The balloon was advanced and deployed at 16 radha to further post dilate the mid right coronary artery. GENIE-3 flow was present before and after the procedure. After achieving excellent angiographic results the apparatus was removed and placed in the left main artery followed by Choice PT extra-support wire placed distally in the LAD. A 3 mm x 34 mm [place] frontier stent was deployed in the proximal LAD at 16 radha reducing the stenosis. A 3 mm x 12 mm noncompliant balloon was deployed at 20 radha in the midportion of further post dilate as well as placed proximally within the stent. GENIE-3 flow was present before and after the procedure. After achieving excellent angiographic results apparatus was removed the sheath was removed and hemostasis was achieved using TR banding patient was transferred to the postop putting in stable condition ANGIOGRAPHIC RESULTS The left main artery Has an ostial eccentric 10% stenosis The left anterior descending artery Has a proximal hazy 30% stenosis followed by a proximal 70% stenosis immediately proximal to the first septal supervisor sign shop and large second diagonal artery. There is additional 30 and 40% mid LAD stenoses The circumflex artery Is nondominant and has 30 to 40% haziness in the proximal first obtuse marginal artery The right coronary artery Is a large dominant vessel and has proximal eccentric 30 to 40% stenosis with an eccentric 60% followed by concentric 70% stenosis. Distally there are 30% stenoses. The posterior descending artery has an ostial eccentric 20 to 30% stenosis The JOHNSON ventriculogram reveals Not performed The left ventricular end-diastolic pressure Not measured IMPRESSION Severe two-vessel coronary disease as described above Successful stenting of the proximal to mid dominant right coronary artery severe disease reduced to 0% with 2 contiguous drug-eluting stents Successful stenting of the proximal LAD severe disease reduced to 0% with 1 drug-eluting stent PLAN 1. Effient and aspirin 2. LDL less than 55 to be achieved with high intensity statin 3. Avoidance of tobacco products 4. Risk factor modification 5. Cardiac rehabilitation Electronically signed by : Marco Wheatley MD 12/13/2023 11:06:15
[2023-12-13 09:41] LABS: Basophils % 0.6 % (0.1-2.0); Eosinophils # 0.1 K/mm3 (0.0-0.4); Eosinophils % 2.2 % (0.1-12.0); Hematocrit 46.7 % (42.0-52.0); Hemoglobin 15.2 g/dL (14.1-18.0); Lymphocytes # 1.8 K/mm3 (0.7-4.5); Lymphocytes % 28.5 % (10-50); Mean Corpuscular HGB Conc 32.7 g/dL (31.8-35.4); Mean Corpuscular Hemoglobin 31.2 pg (27.0-31.2); Mean Corpuscular Volume 95.4 fl (80-94); Mean Platelet Volume 9.6 fl (7.4-10.4); Monocytes # 0.4 K/mm3 (0.1-1.0); Monocytes % 7.1 % (1.7-9.3); Neutrophils # 3.8 K/mm3 (1.8-7.8); Neutrophils % 61.5 % (37.0-80.0); Platelet Count 215 K/mm3 (142-424); Red Blood Count 4.89 M/mm3 (4.60-6.20); Red Cell Distribution Width 13.4 % (11.5-17.5); White Blood Count 6.3 K/mm3 (4.8-10.8)
[2023-12-13 09:44] LABS: Chloride 105 mmol/L (98-107); Potassium 3.9 mmoL/L (3.5-5.1); Sodium 140 mmol/L (136-145)
[2023-12-13 09:47] LABS: Anion Gap 5.9 mEq/L (5-15); Blood Urea Nitrogen 16 mg/dl (9-20); Carbon Dioxide 33 mmol/L (22.0-30.0); Creatinine Clearance Estimated 74 mL/min (50-200); Estimated Glomerular Filt Rate 74 ml/min (>60); GFR (African American) 89 ML/MIN (>60)
[2023-12-13 09:48] LABS: Calcium 8.6 mg/dl (8.4-10.2); Glucose 119 mg/dl (74-100)
[2023-12-13] MEDS: HEPARIN 1,000 UNITS/ML 10ML VIAL (CATH LAB) 10000 UNIT IV (10:07)
[2023-12-13] MEDS: LIDOCAINE 1% 10ML MDV 20 ML IJ (10:07)
[2023-12-13] MEDS: 0.9 % SODIUM CHLORIDE 500 ML 25 ML IV (10:08)
[2023-12-13] MEDS: VERAPAMIL 2.5MG/ML 2ML VIAL 2.5 MG IV (10:08)
[2023-12-13] MEDS: FENTANYL 100MCG/2ML VIAL 50 MCG IV (10:08)
[2023-12-13] MEDS: diphenhydrAMINE 50MG/ML VIAL 50 MG IV (10:08)
[2023-12-13] MEDS: MIDAZOLAM HCL 1MG/ML 5ML VIAL 1 MG IV (10:08)
[2023-12-13] MEDS: HEPARIN 1,000 UNITS/500ML NS (CATH LAB) 3000 UNIT IV (10:09)
[2023-12-13] MEDS: PRASUGREL 10MG TAB 60 MG PO (11:10)
[2023-12-13] MEDS: IOPAMIDOL-370 (76%);100ML BOTTLE 110 ML IV (11:45)
[2023-12-13 11:50] LABS: CATHL Activated Clotting Time 267 SEC (74-125)
== END | disposition home or self-care (01) ==
PROVIDERS: PCP Family Medicine; Visit Provider Internal Medicine
DX: R06.09 Other forms of dyspnea (principal); E11.9 Type 2 diabetes mellitus without complications; I25.118 Atherosclerotic heart disease of native coronary artery with other forms of angina pectoris; E78.2 Mixed hyperlipidemia; Z95.5 Presence of coronary angioplasty implant and graft; Z79.4 Long term (current) use of insulin; Z79.899 Other long term (current) drug therapy
CPT/HCPCS: 80048; 85025; 85347; 92928; 93454; 99152; 99153; C1725; C1769; C1874; C9600; J1200; J1644; J2250; J3010; Q9967

== ENCOUNTER 2023-12-22 15:47 | Outpatient (CLI) | payer MEDICARE, SELFPAY ==
[2023-12-22 16:04] LABS: Basophils # 0.1 K/mm3 (0-0.2); Basophils % 0.7 % (0.1-2.0); Eosinophils # 0.1 K/mm3 (0.0-0.4); Eosinophils % 1.9 % (0.1-12.0); Hematocrit 44.4 % (42.0-52.0); Lymphocytes # 2.1 K/mm3 (0.7-4.5); Lymphocytes % 28.8 % (10-50); Mean Corpuscular HGB Conc 33.7 g/dL (31.8-35.4); Mean Corpuscular Hemoglobin 31.1 pg (27.0-31.2); Mean Corpuscular Volume 92.4 fl (80-94); Mean Platelet Volume 9.3 fl (7.4-10.4); Monocytes # 0.5 K/mm3 (0.1-1.0); Monocytes % 7.2 % (1.7-9.3); Neutrophils # 4.4 K/mm3 (1.8-7.8); Neutrophils % 61.4 % (37.0-80.0); Platelet Count 212 K/mm3 (142-424); Red Cell Distribution Width 13.4 % (11.5-17.5); White Blood Count 7.2 K/mm3 (4.8-10.8)
[2023-12-22 16:47] LABS: Chloride 107 mmol/L (98-107); Potassium 4.8 mmoL/L (3.5-5.1); Sodium 141 mmol/L (136-145)
[2023-12-22 16:50] LABS: Anion Gap 7.8 mEq/L (5-15); Blood Urea Nitrogen 11 mg/dl (9-20); Calcium 8.9 mg/dl (8.4-10.2); Carbon Dioxide 31 mmol/L (22.0-30.0); Estimated Glomerular Filt Rate 111 ml/min (>60); GFR (African American) 135 ML/MIN (>60); Glucose 114 mg/dl (74-100)
== END 2023-12-22 23:59 | disposition home or self-care (01) ==
LOC: LAB 15:48
PROVIDERS: PCP Family Medicine; Visit Provider Internal Medicine
DX: I25.10 Atherosclerotic heart disease of native coronary artery without angina pectoris (principal)
CPT/HCPCS: 36415; 80048; 85025

== ENCOUNTER 2023-12-27 09:52 | Outpatient (CLI) | payer MEDICARE, SELFPAY ==
[2023-12-27 10:15] LABS: Basophils # 0.1 K/mm3 (0-0.2); Basophils % 0.8 % (0.1-2.0); Eosinophils # 0.2 K/mm3 (0.0-0.4); Eosinophils % 2.4 % (0.1-12.0); Hematocrit 48.2 % (42.0-52.0); Hemoglobin 15.7 g/dL (14.1-18.0); Lymphocytes # 1.6 K/mm3 (0.7-4.5); Lymphocytes % 20.8 % (10-50); Mean Corpuscular HGB Conc 32.6 g/dL (31.8-35.4); Mean Corpuscular Hemoglobin 31.1 pg (27.0-31.2); Mean Corpuscular Volume 95.3 fl (80-94); Mean Platelet Volume 9.5 fl (7.4-10.4); Monocytes # 0.5 K/mm3 (0.1-1.0); Monocytes % 6.9 % (1.7-9.3); Neutrophils # 5.3 K/mm3 (1.8-7.8); Neutrophils % 69.2 % (37.0-80.0); Platelet Count 205 K/mm3 (142-424); Red Blood Count 5.06 M/mm3 (4.60-6.20); Red Cell Distribution Width 13.7 % (11.5-17.5); White Blood Count 7.7 K/mm3 (4.8-10.8)
[2023-12-27 10:17] LABS: Chloride 108 mmol/L (98-107); Potassium 4.5 mmoL/L (3.5-5.1); Sodium 145 mmol/L (136-145)
[2023-12-27 10:19] LABS: Alanine Aminotransferase 17 U/L (12-78); Anion Gap 10.5 mEq/L (5-15); Aspartate Amino Transferase 20 U/L (17-59); Bilirubin,Unconjugated 0.3 mg/dL (0.0-1.1); Blood Urea Nitrogen 13 mg/dl (9-20); Carbon Dioxide 31 mmol/L (22.0-30.0); Estimated Glomerular Filt Rate 74 ml/min (>60); GFR (African American) 89 ML/MIN (>60)
[2023-12-27 10:20] LABS: Alkaline Phosphatase 63 U/L (38-126); Bilirubin,Direct 0.1 mg/dl (0.0-0.4); Bilirubin,Indirect 0.4 mg/dL (0.0-0.9); Bilirubin,Total 0.5 mg/dl (0.2-1.3); Calcium 9.4 mg/dl (8.4-10.2); Chol/HDL Ratio 8.5 (1-3.5); Cholesterol 222 mg/dl (140-200); Glucose 111 mg/dl (74-100); HDL Cholesterol 26 mg/dl (40-60); Magnesium 1.9 mg/dl (1.6-2.3); Total Protein,Serum 7.1 g/dl (6.3-8.2); Triglycerides 208 mg/dl (30-150); VLDL Cholesterol 42 mg/dL (0-40)
[2023-12-27 10:44] LABS: Direct LDL Cholesterol 158.62 mg/dL (100-129)
[2023-12-27 10:53] LABS: Free T4 (Free Thyroxine) 1.26 ng/dl (0.78-2.19)
[2023-12-27 11:05] LABS: Thyroid Stimulating Hormone 2.05 uIU/mL (0.465-4.68)
== END 2023-12-27 23:59 | disposition home or self-care (01) ==
LOC: LAB 09:53
PROVIDERS: PCP Family Medicine; Visit Provider Physician Assistant
DX: I25.118 Atherosclerotic heart disease of native coronary artery with other forms of angina pectoris (principal); E11.9 Type 2 diabetes mellitus without complications; E78.2 Mixed hyperlipidemia; Z95.5 Presence of coronary angioplasty implant and graft
CPT/HCPCS: 36415; 80048; 80061; 80076; 83735; 84439; 84443; 85025

== ENCOUNTER 2024-05-19 19:59 | Emergency (ER) | payer MEDICARE, SELFPAY ==
[2024-05-19 20:22] VITALS: BP 152/85; PULSE 65; RESP 20; TEMP 36.7; O2SAT 97; BMI 26.6
[2024-05-19 20:31] VITALS: BP 204/86; PULSE 53; O2SAT 98
--- NOTE | 2024-05-19 20:41 | CT_ITS ---
PROCEDURE INFORMATION: Exam: CT Head Without Contrast Exam date and time: 05/19/2024 8:50 PM Age: 69 years old Clinical indication: Pain; Headache; Additional info: R sided migraine, new. Fhx of primary brain cancer TECHNIQUE: Imaging protocol: Computed tomography of the head without contrast. Radiation optimization: All CT scans at this facility use at least one of these dose optimization techniques: automated exposure control; mA and/or kV adjustment per patient size (includes targeted exams where dose is matched to clinical indication); or iterative reconstruction. COMPARISON: CT HEAD/BRAIN WO CON 08/25/2022 5:57 PM FINDINGS: Tubes, catheters and devices: Postsurgical changes to the left orbit with prosthetic eye in place. Brain: Left anterior temporal lobe encephalomalacia likely related to prior ischemic event versus traumatic injury. There is moderate diffuse cerebral volume loss present. Multiple subcortical and deep hypoattenuating white matter foci are present, likely related to small vessel senescent changes and can also be seen with prior infectious / inflammatory insult, or prior traumatic events. No hyperattenuating foci are identified to suggest acute intracranial hemorrhage. Cerebral ventricles: No ventriculomegaly. Paranasal sinuses: Visualized sinuses are unremarkable. No fluid levels. Mastoid air cells: Visualized mastoid air cells are well aerated. Orbital cavities: Chronic fractures of the left lateral orbit. Bones: Unremarkable. No acute fracture. Soft tissues: Unremarkable. IMPRESSION: 1. Left anterior temporal lobe encephalomalacia likely related to prior ischemic event versus traumatic injury. 2. Multiple subcortical and deep hypoattenuating white matter foci are present, likely related to small vessel senescent changes and can also be seen with prior infectious / inflammatory insult, or prior traumatic events. 3. No hyperattenuating foci are identified to suggest acute intracranial hemorrhage.
[2024-05-19 20:45] LABS: Basophils % 0.3 % (0.1-2.0); Eosinophils # 0.2 K/mm3 (0.0-0.4); Eosinophils % 2.1 % (0.1-12.0); Hematocrit 43.5 % (42.0-52.0); Hemoglobin 14.9 g/dL (14.1-18.0); Lymphocytes # 2.2 K/mm3 (0.7-4.5); Lymphocytes % 30.7 % (10-50); Mean Corpuscular HGB Conc 34.3 g/dL (31.8-35.4); Mean Corpuscular Hemoglobin 31.8 pg (27.0-31.2); Mean Corpuscular Volume 92.8 fl (80-94); Mean Platelet Volume 11.9 fl (7.4-10.4); Monocytes # 0.7 K/mm3 (0.1-1.0); Monocytes % 9.4 % (1.7-9.3); Neutrophils # 4.1 K/mm3 (1.8-7.8); Neutrophils % 57.4 % (37.0-80.0); Platelet Count 188 K/mm3 (142-424); Red Blood Count 4.69 M/mm3 (4.60-6.20); Red Cell Distribution Width 12.5 % (11.5-17.5); White Blood Count 7.2 K/mm3 (4.8-10.8)
[2024-05-19 20:47] LABS: Albumin Level 3.7 g/dl (3.5-5.0); Chloride 103 mmol/L (98-107); Potassium 4.2 mmoL/L (3.5-5.1); Sodium 139 mmol/L (136-145)
[2024-05-19] MEDS: KETOROLAC 30MG/ML VIAL 15 MG IV (20:48)
[2024-05-19 20:50] LABS: Alanine Aminotransferase 22 U/L (12-78); Albumin/Globulin Ratio 1.3 (1.1-1.8); Alkaline Phosphatase 74 U/L (38-126); Anion Gap 5.2 mEq/L (5-15); Aspartate Amino Transferase 30 U/L (17-59); Bilirubin,Total 0.4 mg/dl (0.2-1.3); Blood Urea Nitrogen 10 mg/dl (9-20); Carbon Dioxide 35 mmol/L (22.0-30.0); Creatinine Clearance Estimated 76 mL/min (50-200); Estimated Glomerular Filt Rate 95 ml/min (>60); GFR (African American) 115 ML/MIN (>60); Globulin 2.9 g/dL (1.3-3.2); Total Protein,Serum 6.6 g/dl (6.3-8.2)
[2024-05-19] MEDS: METOCLOPRAMIDE HCL 10MG/2ML VIAL 10 MG IVP (20:50)
[2024-05-19] MEDS: ACETAMINOPHEN 500MG TAB 1000 MG PO (20:50)
[2024-05-19] MEDS: SODIUM CHLORIDE 0.9% 500ML BAG 500 ML IV (20:50)
[2024-05-19] MEDS: DEXAMETHASONE 4MG TABLET 10 MG PO (20:50)
[2024-05-19] MEDS: MAGNESIUM SULFATE IN WATER 2 GM/50 ML PIGGYBACK IV (20:50)
[2024-05-19 20:51] LABS: Calcium 8.8 mg/dl (8.4-10.2); Glucose 106 mg/dl (74-100)
--- NOTE | 2024-05-19 20:52 | ED_ITS ---
Discharge Plan Disposition Patient Disposition: Home, Self-Care Chief Complaint: Headache Prescriptions Prescriptions: No Action metformin 500 mg tablet 500 mg PO BID aspirin [Adult Low Dose Aspirin] 81 mg tablet,delayed release (DR/EC) 81 mg PO DAILY Qty: 30 5RF hydrocodone-acetaminophen 10-325 mg tablet 1 tab PO TID duloxetine 60 mg capsule,delayed release(DR/EC) 60 mg PO ONCE gabapentin 100 mg capsule 100 mg PO TID bisoprolol fumarate 10 mg tablet 10 mg PO DAILY Qty: 30 5RF atorvastatin [Lipitor] 80 mg tablet 80 mg PO DAILY Qty: 90 3RF omeprazole 20 mg capsule,delayed release(DR/EC) See Rx Instructions .ROUTE .COMPLEX Qty: 60 2RF Dose Instruction: TAKE 1 CAPSULE BY MOUTH TWICE DAILY Rx Instructions: TAKE 1 CAPSULE BY MOUTH TWICE DAILY levothyroxine 25 MCG tablet 25 mcg PO DAILY prasugrel HCl [Effient] 10 mg Tablet 10 mg PO DAILY Qty: 30 6RF Referrals Follow up/Referrals: Joe Prince [Primary Care Provider] - See instructions Activity Restrictions/Add. Instructions Additional Instructions/Restrictions: Call your family doctor to establish care for this visit to the emergency department and schedule follow-up within 48 hours to ensure improvement. If you have any worsening of your condition or any other concerning signs or symptoms, return to the emergency department or your primary care doctor for further evaluation. Take Tylenol 1000 mg every 6 hours (4 times daily) and ibuprofen 400 mg every 6 hours (4 times daily) as needed with food and water to prevent GI upset and kidney damage. Clinical Impressions Clinical Impression: Migraine Print Language Print Language: Maori Discharge ED Provider: Cristopher Lindsey General Adult HPI General Chief complaint: Headache Stated complaint: headache for two weeks,nausea Time Seen by Provider: 05/19/24 20:04 Mode of Arrival: Ambulatory Source of Information: Patient Description of Symptoms (Recalled from ER Triage Doc. by RN): pt reports a migrane on the right side that wraps around to the back of his head that has tye waxing and wanning for the past two weeks, but increasingly worse the past 4-5 days. pt has been trying to treat at home with over the counter medications but has been unsuccessful. pt denies any hx of migraines or any trauma History of Present Illness HPI narrative: Please note that above description of symptoms, in this electronic medical record under categorization of recalled from ER triage doctor by RN are reflective of an initial nursing assessment, however, is not reflective of my full history and physical exam that was personally taken and clarified. Consequentially, this preceding description of symptoms, which may include the patient's categorized chief complaint in the EMR, do not reflect my personal clinical impression, and the ultimate description of history of present illness and patient stated complaints should be deferred to this section of the note. Unless stated otherwise or congruent with this section of the note, additional signs, symptoms, or incongruence should be interpreted as inaccurate with my clinical impression. Related Data Home Medications ?Medication ?Instructions ?Recorded ?Confirmed levothyroxine 25 mcg tablet 25 mcg PO DAILY THYROID 12/16/17 12/27/23 metformin 500 mg tablet 500 mg PO BID 07/07/21 12/27/23 hydrocodone 10 mg-acetaminophen 1 tab PO TID 08/07/23 12/27/23 325 mg tablet gabapentin 100 mg capsule 100 mg PO TID 11/29/23 12/27/23 duloxetine 60 mg capsule,delayed 60 mg PO ONCE 12/27/23 12/27/23 release Previous Rx's ?Medication ?Instructions ?Recorded aspirin 81 mg tablet,delayed 81 mg PO DAILY #30 tabs 07/07/21 release (Adult Low Dose Aspirin) bisoprolol fumarate 10 mg tablet 10 mg PO DAILY #30 tabs 11/29/23 prasugrel HCl 10 mg tablet 10 mg PO DAILY #30 tabs 12/13/23 (Effient) atorvastatin 80 mg tablet (Lipitor) 80 mg PO DAILY #90 tabs 12/29/23 omeprazole 20 mg capsule,delayed See Rx Instructions .Route 03/28/24 release .COMPLEX #60 caps Allergies Allergy/AdvReac Type Severity Reaction Status Date / Time Penicillins Allergy Rash Verified 12/27/23 09:33 [facility] Disclaimer: The information contained in this section may have been updated after the patient was seen, as this information can be updated by other users. Medical History Hypothyroid Diabetes mellitus, type 2 History of cataract RIGHT EYE Allergies Hyperlipidemia Hypertension Bladder cancer Presence of artificial eye Asthma Ear abrasion Healing/old bruising Surgical History History of hip replacement History of tracheostomy PLACED AND REMOVED. History of surgery History of surgery BONE REMOVED FROM PELVIS LEFT SIDE OF EYE SOCKET H/O neck surgery History of surgery STENT X1 History of appendectomy Family History Other Family history of cancer Family history of stroke Social History Smoking Status: Current every day smoker tobacco type: cigarettes packs per day: 50 alcohol intake: never substance use type: denies use current occupational status: retired and disabled Travel in the last 8 weeks: Inside the [facility] housing: other Have you lived/traveled outside US in past 30 days?: No Contact w/someone who lives/traveled outside US past 30 days?: No Exposure to someone with infectious disease in past 14 days?: No Do you have a fever (greater than 100.4 F or 38 C)?: No Have you tested positive for COVID-19: No Exposed to someone with COVID-19 in past 14 days?: No Do you have a sore throat?: No Do you have a cough?: No Do you have any weakness?: No Do you have any diarrhea?: No Are you experiencing any unusual bleeding?: No Do you have any muscle aches/pain?: No Do you have any abdominal pain?: No Are you experiencing loss of taste or smell?: No Other Medical History Have you received the Flu Vaccine for this season: Yes Have you received the Pneumonia Vaccine: No ROS Obtained: Yes All systems reviewed & no additional complaints except as documented Physical Exam General General appearance: alert Head Head exam: atraumatic and normocephalic Eye Eye exam: Absent normal appearance (Patient has prosthetic eye in the left from previous injury) Neck Neck exam: Present normal inspection, full ROM and trachea midline Respiratory Respiratory exam: Absent respiratory distress, wheezes, stridor, accessory muscle use or prolonged expiratory phase Cardiovascular Cardiovascular exam: Present other (Pulses equal symmetric in upper and lower extremities) Abdominal Exam Abdominal exam: Present soft; Absent distention, tenderness or pulsatile mass Extremities Exam Extremities exam: Absent edema Neurological Exam Neurological exam: Present alert, oriented X3 and CN II-XII intact; Absent motor sensory deficit Skin Skin exam: Present warm and dry; Absent diaphoresis or erythema Medical Decision Making Medical Records Medical records reviewed: Yes I reviewed the patient's medical records. Screening: Per USPSTF and CDC recommendations, given the prevalence of disease in our region, it is our hospital?s policy to screen for HIV and viral Hepatitis for all patients aged 18 and over and those with ongoing risk factors. Lan Inquiry Pt receiving controlled substance: No Lan was queried for this patient: No Vital Signs: 05/19/24 20:22 05/19/24 20:31 Temperature 98.1 F Temperature Source Oral Pulse Rate 53 L Pulse Rate [Right] 65 Respiratory Rate 20 Blood Pressure 204/86 H Blood Pressure [Right Arm] 152/85 H Blood Pressure Mean [Right Arm] 107 02 Sat by Pulse Oximetry 97 98 Oxygen Delivery Method Room Air Lab Data Lab Results 05/19/24 20:15: WBC 7.2, RBC 4.69, Hgb 14.9, Hct 43.5, MCV 92.8, MCH 31.8 H, MCHC 34.3, RDW 12.5, Plt Count 188, MPV 11.9 H, Neut % (Auto) 57.4, Lymph % (Auto) 30.7, [place] % (Auto) 9.4 H, Eos % (Auto) 2.1, Baso % (Auto) 0.3, Neut # (Auto) 4.1, Lymph # (Auto) 2.2, [place] # (Auto) 0.7, Eos # (Auto) 0.2, Baso # (Auto) 0.0, Sodium 139, Potassium 4.2, Chloride 103, Carbon Dioxide 35 H, Anion Gap 5.2, BUN 10, Creatinine 0.80, Estimated Creat Clear 76, Estimated GFR 95, Est GFR ( Amer) 115, Glucose 106 H, Calcium 8.8, Total Bilirubin 0.4, AST 30, ALT 22, Alkaline Phosphatase 74, Total Protein 6.6, Albumin 3.7, Globulin 2.9, Albumin/Globulin Ratio 1.3, HCV Ab SUN w/Rflx PCR Qn Negative, HIV Ag/Ab Combo Qual Negative 05/19/24 20:15 05/19/24 20:15 Orders (Tests/Meds): ED MEDICATIONS Discontinued Medications Generic Name Dose Route Start Last Admin Trade Name Freq PRN Reason Stop Dose Admin Acetaminophen 1,000 mg 05/19/24 20:39 05/19/24 20:50 Acetaminophen 500mg Tab PO 05/19/24 20:40 1,000 mg ONCE ONE Administration Dexamethasone 10 mg 05/19/24 20:39 05/19/24 20:50 Dexamethasone 4mg Tablet PO 05/19/24 20:40 10 mg ONCE ONE Administration Magnesium Sulfate 2 gm in 50 mls @ 50 mls/hr 05/19/24 20:39 05/19/24 20:50 Magnesium Sulfate 2gm/50ml Premix IV 05/19/24 21:38 50 mls/hr ONCE ONE Administration Ketorolac Tromethamine 15 mg 05/19/24 20:39 05/19/24 20:48 Ketorolac 30mg/Ml Vial IV 05/19/24 20:40 15 mg ONCE ONE Administration Metoclopramide HCl 10 mg 05/19/24 20:39 05/19/24 20:50 Metoclopramide Hcl 10mg/2ml Vial IVP 05/19/24 20:40 10 mg ONCE ONE Administration Sodium Chloride 500 ml 05/19/24 20:41 05/19/24 20:50 Sodium Chloride 0.9% 500ml Bag IV 05/19/24 20:42 500 ml ONCE ONE Administration ORDERS Category Date Time Status CT head/brain wo con Stat Cat Scan 05/19/24 20:41 Completed CBC w/Auto Diff [Complete Blood Count Auto Diff] Stat Lab 05/19/24 20:15 Completed CMP [Comprehensive Metabolic Panel] Stat Lab 05/19/24 20:15 Completed HIV Combo Stat Lab 05/19/24 20:15 Completed Hepatitis C Ab Qual. 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 Patient states he does not usually have headache or migraine disorder. States that he started having a migraine about 4 days prior to this and it has been crescendo in nature, intermittently waxes and wanes throughout the day. Seems to be worse in the mornings, but patient unsure. No vision changes, facial swelling, neck discomfort, thunderclap nature, nausea, vomiting, fevers, constitutional symptoms, confusion, neurologic deficits, or any other acute concerns. Patient mostly concerned because his brother was diagnosed with a brain tumor after having migraines and he is worried about that. History was obtained via conversation with patient and family. On arrival, patient hemodynamically stable, alert, oriented x4, appropriate, GCS 15, moving all extremities spontaneously, pupils equal and reactive to light. Full physical exam performed and significant for clinically well-appearing male no acute distress. At neurologic baseline, per patient and family. He does have enucleation of the left eye with prosthetic in place. EOMs intact, patient speaking full sentences, alert and oriented very clinically well appearing. Differential includes headache, migraine, intracranial mass, intracranial bleed, sentinel bleed, among others. Patient placed on continuous cardiac monitoring and continuous pulse ox with initial blood pressure 204/86, heart rate 53, saturation 98% on room air. Patient was given migraine cocktail for symptomatic management and correction of underlying abnormalities. Workup independently interpreted and significant for nonactionable CBC or chemistry. On independent interpretation of imaging, encephalomalacia, but no acute changes in the head, no evidence of mass. On reevaluation, patient states he feeling much better, migraine is gone and he is ready to go. Given patient presentation, workup, history, this most likely represents acute migraine disorder. Because patient at baseline without signs or symptoms of clinical decompensation, deemed appropriate for discharge. Results were relayed to patient who voiced understanding and were agreeable to outpatient management and follow up. I discussed my clinical impression with patient and answered all questions. At this time, the evidence for any other entities in the differential is insufficient to warrant any further testing or ED observation. This was explained as well. Advisory was given that persistent or worsening symptoms require further evaluation. I confirmed the understanding of this discussion. Senior Commissions Analyst disclaimer Much of this encounter note is an electronic exhibits curator spoken language to printed text. Electronic exhibits curator of the spoken language may permit errors. Although I have reviewed the note, some errors may still exist. Critical Care Critical Care Time Critical Care Time: No
[2024-05-19 21:32] LABS: HIV Combo NEGATIVE (Negative)
[2024-05-19 21:40] LABS: Hepatitis C Ab Qual. W/ RFX NEGATIVE (Negative)
[2024-05-19 22:05] VITALS: BP 134/76; PULSE 56; RESP 16; TEMP 36.6; O2SAT 97
--- NOTE | 2024-05-19 22:07 | PC.NURSE ---
IV removed. catheter tip intact. bleeding controlled.
== END 2024-05-19 22:09 | disposition home or self-care (01) ==
PROVIDERS: Emergency Provider Emergency Medicine; PCP Family Medicine
DX: G43.909 Migraine, unspecified, not intractable, without status migrainosus (principal); R11.0 Nausea; F17.210 Nicotine dependence, cigarettes, uncomplicated
CPT/HCPCS: 70450; 80053; 85025; 86803; 87389; 96365; 96374; 96375; 99285; J1885; J2765; J3475; J8540

== ENCOUNTER 2024-06-04 12:55 | Outpatient (CLI) | payer MEDICARE, SELFPAY ==
--- NOTE | 2024-06-04 12:56 | CT_ITS ---
FINAL REPORT TECHNIQUE: Thin section axial images were obtained from the lung apices to the upper abdomen by computed tomography. Reformatted images were obtained and reviewed. This study was performed with techniques to keep radiation doses al low as reasonably achievable (ALARA). Individualized dose reduction techniques using automated exposure control or adjustment of mA and/or kV according to the patient's size were employed. CLINICAL HISTORY: HX LUNG SCREENING 2- 1 ppd x 62 years COMPARISON: 06/02/2022 FINDINGS: CHEST CT LOW DOSE 69-year-old male, current smoker, approximately 24-igyk-sqps history CTDI vol (mGy): 2.9 DLP (mGy-cm): 106.03 There is no axillary adenopathy. There is no mediastinal or hilar mass or adenopathy. The heart is normal in size. There is no pericardial or pleural effusion. There is mild emphysema and mild pulmonary scarring. Lung window images demonstrate several pulmonary nodules also seen on the prior exam. There is a 3 mm nodule in the lateral left upper lobe, best seen on image #27 of series 3, stable. There is a 3 mm left mid lung nodule, best seen on image #49 of series 3, also stable. There is a 6 mm medial left lower lobe nodule, best seen on image #34 of series 3, stable. A 5 mm left lower lobe nodule is present on image #50 of series 3, stable. 2 nodules are present in the anterior right middle lobe, measuring 5 mm each, best seen on image #50 of series 3. Limited images of the upper abdomen are remarkable for low-attenuation lesions of the liver measuring up to 3.2 cm, most likely hepatic cysts. There is also a gallstone noted in the dependent portion of the gallbladder, also seen on the prior exam. IMPRESSION: Lung-RADS category 2. Recommend 12 month follow up low dose chest CT. Reviewed, Interpreted and Dictated by Rupesh Green MD Transcribed by Sandra Paredes Authenticated and [facility]
== END 2024-06-04 23:59 | disposition home or self-care (01) ==
LOC: RAD 12:55
PROVIDERS: PCP Family Medicine; Visit Provider Family Medicine
DX: Z12.2 Encounter for screening for malignant neoplasm of respiratory organs (principal); F17.210 Nicotine dependence, cigarettes, uncomplicated
CPT/HCPCS: 71271

== ENCOUNTER 2024-07-09 15:06 | Outpatient (CLI) | payer MEDICARE, SELFPAY ==
--- NOTE | 2024-07-09 | CA_ITS ---
APPROVED REPORT EXAM: Comprehensive 2D, Doppler, and color-flow Echocardiogram Puttier: Sheri Lima CRT Ht: 5 ft 8 in Wt: 170lbs BSA: 1.91 BP: 187/73 mmHg Rhythm: 73 Indications: Shortness of Breath, Diabetes, CAD, Hyperlipidemia, Hypertension/HDD 2D Dimensions LA Volume 26.40 mL LA Volume Index 13.50 mL/m2 (M/F) 16-34 M-Mode Dimensions RVDd 2.40 cm (0.9-2.6) LA Diam 3.48 cm (1.9-4.0) LVDd 4.90 cm (3.5-5.7) LVDs 2.79 cm (3.5-5.7) IVSd 1.57 cm (0.6-1.1) PWd 0.50 cm (0.6-1.1) EF (Teich) 74.00% FS 43.10% EDV (Teich) 112.80 mL TAPSE 2.10 (<1.7) ESV (Teich) 29.30 mL LV Diastology E Decel Time 193 (160-240 msec) E/A Ratio 0.90 MED A' 8.40 cm/s LAT A' 9.50 cm/s Aortic Valve AO Peak GR. 6.00 mmHg Mitral Valve MV E Max Thanh. 65.0 (40-130 cm/s) MV A Velocity 73.0 (40-130 cm/s) E/A Ratio 0.90 MV PHT 57.0 ms Pulmonary Valve PV Peak Velocity 101.0 (50-150 cm/s) Tricuspid Valve TR P. Velocity 311.00 cm/s RAP Estimate 10.00 mmHg RVSP 48.70 mmHg Left Ventricle The left ventricle is normal size. The left ventricular systolic function is normal. The left ventricular ejection fraction is within the normal range. There is increased overall thickness. There is normal LV segmental wall motion. Transmitral Doppler flow pattern suggests impaired LV relaxation. LVEF is 55%. Right Ventricle The right ventricle is normal size. The right ventricular systolic function is normal. Atria The left atrium size is normal. The right atrium size is normal. There is no Doppler evidence of interatrial shunt. Aortic Valve Aortic valve is mildly thickened. There is no aortic valvular stenosis. Trace aortic regurgitation is present. Mitral Valve The mitral valve is normal in structure. No evidence of mitral valve stenosis. Mild mitral regurgitation. Tricuspid Valve Tricuspid valve is grossly normal in structure and function. Trace tricuspid regurgitation. There is insufficient TR jet to estimate RVSP. Pulmonic Valve The pulmonary valve is normal in structure. Trace pulmonic regurgitation. Great Vessels The aortic root is normal in size. IVC is normal in size and collapses >50% with inspiration. Pericardium There is no pericardial effusion. Other Information Study Quality: Fair Conclusion Normal biventricular systolic function. Mild mitral regurgitation. Electronically signed by : Tonia Sanchez MD 07/15/2024 21:28:19
== END 2024-07-09 23:59 | disposition home or self-care (01) ==
LOC: RT 15:07
PROVIDERS: PCP Family Medicine; Visit Provider Internal Medicine
DX: I34.0 Nonrheumatic mitral (valve) insufficiency (principal); I25.118 Atherosclerotic heart disease of native coronary artery with other forms of angina pectoris; E78.5 Hyperlipidemia, unspecified; E11.9 Type 2 diabetes mellitus without complications; I10 Essential (primary) hypertension
CPT/HCPCS: 93306

== ENCOUNTER 2024-07-31 14:47 | Outpatient (CLI) | payer MEDICARE, SELFPAY ==
--- OUTSIDE RECORDS SUMMARY | 2024-07-31 14:52 | XMS_ITS | Encounter Summary ---
Author Organization [facility] Address [address] [place] [address] Care Team Providers Care Barber Or Beauty Shop Manager Name Role Phone Natan Benjamin MD Primary Care Provider [phone] Joe Prince MD Primary Care Provider [phone] Reason for Referral * Consultation (Routine) - Closed Specialty Diagnoses / Procedures Referred By Mally reyes Referred To Contact Orthopaedic Surgery Diagnoses Osteoarthritis of right hip, unspecified osteoarthritis type Praneeth Aiken DO [address] [facility] [address] [place] [address] Phone: tel: fax: Jayme Matson MD [address] [address] Phone: tel: fax: Referral ID Status Reason Start Date Expiration Date Visits Re quested Visits Authorized [id number] Closed 06/20/2023 12/19/2024 1 1 Encounter Details Date Type Department Care Team (Latest Contact Info) Description 06/20/2023 Community [facility] [address] [place] [address] Praneeth Aiken DO [address] [place] [facility] [address] [place] [address] Osteoarthritis of right hip, unspecified osteoarthritis type (Primary Dx) Social History Tobacco Use Types Packs/Day Years Used Date Smoking Tobacco: Every Day Cigarettes 1.5 50 Smokeless Tobacco: Never Alcohol Use Standard Drinks/Week Comments Never 0 (1 standard drink = 0.6 oz pur e alcohol) Sex and Gender Information Value Date Recorded Sex Assigned at Not on file Legal Sex Male 7:58 PM EDT Gender Identity Male 08/28/2023 10:32 AM EDT Sexual Orientation Not on file documented as of this encounter Plan of Treatment Scheduled Referrals Name Type Priority Associated Diagnoses Orde r Schedule Ambulatory referral to Orthopaedics Joint Reconstruction Outpatient Referral Routine Osteoarthritis of right hip, unspecified osteoarthritis type Expected: 06/20/2023 (Approximate), Expires: 06/19/2024 documented as of this encounter Visit Diagnoses Diagnosis Osteoarthritis of right hip, unspecified osteoarthritis type- Primary documented in this encounter Additional Health Concerns Assessment Noted Time A fall risk assessment has been complete d for the patient 12/27/2022 4:26 PM EST A Body Mass Index follow-up plan has been documented for the patient 12/27/2022 4:46 PM EST documented as of this encounter Care Teams Barber Or Beauty Shop Manager Relationship Specialty Start Date End Date Natan Benjamin MD [address] [place] [id number] PCP - General 06/26/20 06/29/23 Joe Prince MD [address] [place] [id number] PCP - General 06/30/23 documented as of this encounter
--- OUTSIDE RECORDS SUMMARY | 2024-07-31 14:52 | XMS_ITS | Clinical Summary ---
Author Organization [facility] Address [address] [place] [address] Care Team Providers Care Bus Assistant Name Role Phone Joe Prince MD Primary Care Provider [phone] Allergies Active Allergy Reactions Criticality Noted Date Comments Penicillin G Rash Low 07/07/2021 Medications atorvastatin (Lipitor) 40 MG tablet Take 1 tablet (40 mg) by mouth 1 (one) time each day in the evening. 3 Active bisoprolol (Zebeta) 5 MG tablet Take 1 tablet (5 mg) by mouth 1 (one) time each day. 3 Active DULoxetine (Cymbalta) [address] capsule Take 1 capsule (30 mg) by mouth 1 (one) time each day. 3 Active levothyroxine (Synthroid, Levoxyl) 25 MCG tablet Take 1 tablet (25 mcg) by mouth 1 (one) time each day before breakfast. 3 Active metFORMIN (Glucophage) 500 MG tablet 1 tablet (500 mg) 2 (two) times a day with meals. 3 Active cyanocobalamin 1000 MCG tablet Take 1 tablet (1,000 mcg) by mouth 1 (one) time each day. Active cholecalciferol (Vitamin D-3) 50 MCG (2000 UT) capsule Take 1 capsule (2,000 Units) by mouth 1 (one) time each day. gummy Active naloxone (Narcan) 4 mg/0.1 mL nasal spray 1. Give 1 spray in nostril for no/slow breathing or cannot wake after opioid use 2. Call 911 3. Repeat in other nostril if symptoms continue 1 each Active acetaminophen (Tylenol Extra Strength) 500 MG tablet Take 2 tablets (1,000 mg) by mouth every 8 (eight) hours. 100 tablet Active Additional Information Patient not taking.Reported on 10/10/2023 oxyCODONE (Roxicodone) 5 MG immediate release tablet Take 1 tablet (5 mg) by mouth every 8 (eight) hours if needed for severe pain. 20 tablet 4 Active Additional Information Patient not taking.Reported on 10/10/2023 traMADol (Ultram) 50 MG tablet Take 1 tablet (50 mg) by mouth every 8 (eight) hours if needed for moderate pain. 30 tablet Active Additional Information Patient not taking.Reported on 10/10/2023 gabapentin (Neurontin) 100 MG capsule Take 1 capsule (100 mg) by mouth 3 (three) times a day. If this medication makes you drowsy you may take it only at bedtime 30 capsule 4 Active Active Problems Problem Noted Date Diagnosed Date Cervical radicular pain 09/12/2023 Contusion, hip 09/12/2023 Coronary artery disease 09/12/2023 Costochondritis, acute 09/12/2023 Diabetes mellitus 09/12/2023 Foraminal stenosis of cervical region 09/12/2023 History of coronary artery stent placement 09/11 HLD (hyperlipidemia) 09/12/2023 PUD (peptic ulcer disease) 09/12/2023 Shoulder pain 09/12/2023 Typical angina 09/12/2023 Arthritis of right hip 08/28/2023 Osteoarthritis of right hip 07/06/2023 Extrusion of ocular implant 11/16/2022 Arthritis 03/31/2015 11/16/2022 Bulging lumbar disc 03/31/2015 11/16/2022 Hypothyroidism 03/31/2015 11/16/2022 Leg pain 03/31/2015 11/16/2022 Low back pain 03/31/2015 11/16/2022 Sciatica 03/31/2015 11/16/2022 Nerve root disorder 03/31/2015 11/16/2022 Family History Medical History Relation Name Comments Diabetes Father Arch Other cancer Father Arch Stroke Father Arch Diabetes Mother Bestie Other cancer Mother Bestie Anesthesia problems Neg Hx Malig Hyperthermia Neg Hx Relation Name Status Comments Father Arch Mother Lissa Social History Tobacco Use Types Packs/Day Years Used Date Smoking Tobacco: Every Day Cigarettes 3.7 63.5 Started: 02/13/1961 Smokeless Tobacco: Never Alcohol Use Standard Drinks/Week Comments Not Currently 0 (1 standard drink = 0.6 oz pur e alcohol) age 18-19 Sex and Gender Information Value Date Recorded Sex Assigned at Not on file Legal Sex Male 7:58 PM EDT Gender Identity Male 08/28/2023 10:32 AM EDT Sexual Orientation Not on file Last Filed Vital Signs Vital Sign Reading Time Taken Comments Blood Pressure 147/86 10/10/2023 1:23 PM EDT Pulse 91 10/10/2023 1:23 PM EDT Temperature 36.6 C (97.9 F) 08/29/2023 11:14 AM EDT Respiratory Rate 16 08/29/2023 2:38 AM EDT Oxygen Saturation 97% 10/10/2023 1:23 PM EDT Inhaled Oxygen Concentration - - Weight 74.5 kg (164 lb 3.9 oz) 10/10/2023 1:23 P M EDT Height 170.2 cm (5' 7 ) 10/10/2023 1:23 PM EDT Body Mass Index 25.72 10/10/2023 1:23 PM EDT Plan of Treatment Health Maintenance Due Date Last Done Comments Dental Oral Exam 1953 Dental Prophylaxis 1953 Dental X-Ray: Bitewings 1953 Dental X-Ray: Full Mouth 1953 [facility]-Depression Screening 1953 [facility]-Hepatitis C Screening 1953 [facility]-Medicare Annual Wellness (AWV) 1953 [facility]-/Child/Adol SDOH Screenings 1953 Diabetes: Dental Exam 1963 [facility]- SDOH Screenings 1971 [facility]-Adult SDOH Screenings 1971 [facility]-DTaP,Tdap,and Td Vaccines (1 - Tdap) 01/28/1972 [facility]-Pneumococcal Vaccine: 50+ Years (1 of 2 - PCV) 01/28/1972 CT Colonography 1998 Colonoscopy 1998 FIT-DNA 1998 FIT 1998 FOBT 1998 Sigmoidoscopy 1998 [facility]-Colorectal Cancer Screening 1998 [facility]-Lung Cancer Screening 2003 [facility]-Zoster Vaccines (1 of 2) 2003 [facility]-RSV Vaccine: 60+ Years or (1 - Risk 60-74 years 1-dose series) 2013 [facility]-Abdominal Aortic Aneurysm (AAA) Screening 2018 [id number] Vaccine ( season) 2023 [facility]-Diabetes: Hemoglobin A1C 02/12/2024 08/15/2023 [facility]-Influenza Vaccine (Season Ended) 2024 [facility]-Obesity Intervention Completed 024, 09/12/2023, 07/06/2023, Additional history exists HPV Vaccines Aged Out No longer eligi ble based on patient's age to complete this topic [facility]-HIB Vaccines Aged Out No longer e ligible based on patient's age to complete this topic [facility]-Hepatitis A Vaccines Aged Out No longer eligible based on patient's age to complete this topic [facility]-IPV Vaccines Aged Out No longer e ligible based on patient's age to complete this topic [facility]-Rotavirus Vaccines Aged Out No lo nger eligible based on patient's age to complete this topic Goals Goal Patient Goal Type Associated Problems Recent Progress Patient-Stated? Author Autogenera baldo Goal Care Plan Autogenerated Problem No Jayme Matson MD Medical Devices Implanted Type Area Manager Android Device Identifier Shelf Expiration Date Model / Serial / Lot Liner Or3o Dual Mbility 44 58 - [id number] Implanted:Qty: 1 on 08/28/2023 by Jayme Matson MD at [facility] Right: [employer]-[id number] 02/20/2033 [id number] / / [id number] Chg Screw Ref Spher Head 35mm - [id number] Implanted:Qty: 1 on 08/28/2023 by Jayme Matson MD at [facility] Right: [employer]-[id number] 05/21/2033 [id number] / / [id number] Chg Screw Ref Spher Head 25mm - [id number] Implanted:Qty: 1 on 08/28/2023 by Jayme Matson MD at [facility] Right: [employer]-[id number] 05/05/2033 [id number] / / [id number] Chg Shell R3 3 Hole Acet 58mm - [id number] Implanted:Qty: 1 on 08/28/2023 by Jayme Matson MD at [facility] Right: [employer]-[id number] 04/29/2033 [id number] / / [id number] Liner Or3o Dual Mbility Xlpe 28 44 - [id number] Implanted:Qty: 1 on 08/28/2023 by Jayme Matson MD at [facility] Right: [employer]-[id number] 12/26/2032 [id number] / / [id number] Polarstem Cementless Tiha 5 - [id number] Implanted:Qty: 1 on 08/28/2023 by Jayme Matson MD at [facility] Right: [employer]-[id number] 02/03/2029 [id number] / / [id number] Chg Head Oxinium Fem 01/26 28m - [id number] Implanted:Qty: 1 on 08/28/2023 by Jayme Matson MD at [facility] Right: [employer]-[id number] 06/23/2033 [id number] / / [id number] Procedures Procedure Name Priority Date/Time Associated Diagnosis Comments HEMOGLOBIN A1C Routine 08/15/2023 2:11 PM EDT Hip pain, right Osteoarthritis of right hip, unspecified osteoarthritis type from Last 3 Months or Most Recently Relevant to Health Maintenance Results * (ABNORMAL) Hemoglobin A1c (08/15/2023 2:11 PM EDT) Hemoglobin A1c 5.8(H) <5.7 % 08/15/2023 6:45 PM EDT [facility] Blood Venous blood specimen / Unknown Venipuncture / Unknown 08/15/2023 2:11 PM EDT 08/15/2023 2:11 PM EDT Narrative [facility] - 08/15/2023 6:45 PM EDT HA1C Interpretive Data: Diagnosis of Diabetes: Diabetic > or = 6.5% Pre-diabetic 5.7 to 6.4% Non-diabetic < or = 5.6% Glycemic Targets for Type I and Type II Diabetics: Non- Adults <7.0% Adults <6.0% Children and Adolescents <7.5% Source: [place] [employer]. Standards of medical care in diabetes,2017. Diabetes Care.2017:40 (suppl 1):S1-S135. HbA1c assay performed by an ion-exchange chromatography method that is certified traceable to the DCCT. us Jayme Matson MD LAB BLOOD ORDERABLES Final R [facility] [address] [place] [address] from Last 3 Months or Most Recently Relevant to Health Maintenance Additional Health Concerns Active Problems Noted Date Diagnosed Date Autogenerated Problem 04/22/2024 [address] MEDICARE Advance Directives * Full Code (Latest Code Status on File) Date Activated Date Inactivated Comments 08/28/2023 9:18 AM 08/29/2023 5:41 PM Question Answer Comments Patient has decision-making capacity? Yes Care Teams Bus Assistant Relationship Specialty Start Date End Date Joe Prince MD [address] [id number] [facility] - General 06/30/23
[2024-07-31 15:33] LABS: Basophils % 0.6 % (0.1-2.0); Eosinophils # 0.2 Kmm3 (0.0-0.4); Eosinophils % 2.9 % (0.1-12.0); Hematocrit 40.9 % (42.0-52.0); Hemoglobin 13.6 g/dL (14.1-18.0); Immature Granulocytes # 0.03 10^3uL; Immature Granulocytes % 0.4 %; Lymphocytes # 1.6 K/mm3 (0.7-4.5); Lymphocytes % 21.6 % (10-50); Mean Corpuscular HGB Conc 33.3 g/dL (31.8-35.4); Mean Corpuscular Hemoglobin 30.7 pg (27.0-31.2); Mean Corpuscular Volume 92.3 fl (80-94); Mean Platelet Volume 11.4 fl (7.4-10.4); Monocytes # 0.6 K/mm3 (0.1-1.0); Neutrophils # 4.8 K/mm3 (1.8-7.8); Neutrophils % 66.5 % (37.0-80.0); Nucleated Red Blood Cells # 0 10^3/uL; Nucleated Red Blood Cells % 0 %; Platelet Count 263 K/mm3 (142-424); Red Blood Count 4.43 M/mm3 (4.60-6.20); Red Cell Distribution Width 12.6 % (11.5-17.5); Red Cell Distribution Width-SD 42.3 fL; White Blood Count 7.2 K/mm3 (4.8-10.8)
[2024-07-31 15:53] LABS: Alanine Aminotransferase 16 U/L (12-78); Albumin Level 3.5 g/dl (3.5-5.0); Alkaline Phosphatase 70 U/L (38-126); Anion Gap 6.4 mEq/L (5-15); Aspartate Amino Transferase 20 U/L (17-59); Bilirubin,Direct 0.1 mg/dl (0.0-0.4); Bilirubin,Indirect 0.4 mg/dL (0.0-0.9); Bilirubin,Total 0.5 mg/dl (0.2-1.3); Bilirubin,Unconjugated 0.4 mg/dL (0.0-1.1); Blood Urea Nitrogen 10 mg/dl (9-20); Carbon Dioxide 34 mmol/L (22.0-30.0); Chloride 105 mmol/L (98-107); Chol/HDL Ratio 2.3 (1-3.5); Cholesterol 65 mg/dl (140-200); Estimated Glomerular Filt Rate 95 ml/min (>60); GFR (African American) 115 ML/MIN (>60); Glucose 104 mg/dl (74-100); HDL Cholesterol 28 mg/dl (40-60); Magnesium 1.5 mg/dl (1.6-2.3); Potassium 4.4 mmoL/L (3.5-5.1); Sodium 141 mmol/L (136-145); Total Protein,Serum 6.3 g/dl (6.3-8.2); Triglycerides 91 mg/dl (30-150); VLDL Cholesterol 18 mg/dL (0-40)
[2024-07-31 16:08] LABS: Direct LDL Cholesterol < 30.00 mg/dL (100-129)
[2024-07-31 16:35] LABS: Thyroid Stimulating Hormone 1.56 uIU/mL (0.465-4.68)
[2024-07-31 21:08] LABS: Free T4 (Free Thyroxine) 1.52 ng/dl (0.78-2.19)
== END 2024-07-31 23:59 | disposition home or self-care (01) ==
LOC: LAB 14:47
PROVIDERS: PCP Family Medicine; Visit Provider Internal Medicine
DX: I25.10 Atherosclerotic heart disease of native coronary artery without angina pectoris (principal)
CPT/HCPCS: 36415; 80048; 80061; 80076; 83735; 84439; 84443; 85025

== ENCOUNTER 2024-08-08 11:54 | Outpatient (CLI) | payer MEDICARE, SELFPAY ==
--- NOTE | 2024-08-08 | CA_ITS ---
APPROVED REPORT Exam: Pharmacologic Technologist: Melly Gonzalez Ht: 5 ft 8 in Wt: 169 lbs BSA: 1.90 m2 Medical History Medications: aspirin, atorvastatin, bisoprolol fumarate, duloxetine, repatha, gabapentin, perocet, levothyroxine, losartan, metformin, omeprazole, effient Stress Test Details Test: Lexiscan Reason for pharmacologic stress test: physical limitation. HR Resting HR: 57 bpm Max Heart Rate (APMHR): 149.210750 bpm Max HR Achieved: 89 bpm Target HR (85% APMHR): 126.364096 bpm % of APMHR: 59.73 Recovery HR: 77 bpm BP Resting BP: 157.0/78.0 mmHg Max BP: 157.0/78.0 mmHg Recovery BP: 147.0/76.0 mmHg ECG Resting ECG: Sinus Bradycardia Stress ECG Conclusion Symptoms: None. Arrhythmias/Ectopy: None. ST-T Changes: <1.5mm ST Segment changes. Conclusion: Non-Diagnostic Lexiscan stress test. Electronically signed by : Tonia Sanchez MD 08/10/2024 00:12:36
--- OUTSIDE RECORDS SUMMARY | 2024-08-08 11:57 | XMS_ITS | Clinical Summary ---
Author Organization [facility] Address [address] [place] [address] Care Team Providers Care Sawmill Production Worker Name Role Phone Joe Prince MD Primary Care Provider [phone] Allergies Active Allergy Reactions Criticality Noted Date [...] 2013 [facility]-Abdominal Aortic Aneurysm (AAA) Screening 2018 [id number] Vaccine ( season) 2023 [facility]-Diabetes: Hemoglobin A1C [...] Matson MD Medical Devices Implanted Type Area Office Equipment Technician Device Identifier Shelf Expiration Date Model / Serial / Lot Liner Or3o Dual Mbility 44 58 - [id number] Implanted:Qty: 1 on 08/28/2023 by Jayme Matson MD at [facility] Right: [employer]-[id number] 02/20/2033 [id number] / / [id number] Chg Screw Ref Spher Head 35mm - [id number] Implanted:Qty: 1 on 08/28/2023 by Jayme Matson MD at [facility] Right: [employer]-[id number] 05/21/2033 [id number] / / [id number] Chg Screw Ref Spher Head 25mm - [id number] Implanted:Qty: 1 on 08/28/2023 by Jayme Matson MD at [facility] Right: [employer]-[id number] 05/05/2033 [id number] / / [id number] Chg Shell R3 3 Hole Acet 58mm - [id number] Implanted:Qty: 1 on 08/28/2023 by Jayme Matson MD at [facility] Right: [employer]-[id number] 04/29/2033 [id number] / / [id number] Liner Or3o Dual Mbility Xlpe 28 44 - [id number] Implanted:Qty: 1 on 08/28/2023 by Jayme Matson MD at [facility] Right: [employer]-[id number] 12/26/2032 [id number] / / [id number] Polarstem Cementless Tiha 5 - [id number] Implanted:Qty: 1 on 08/28/2023 by Jayme Matson MD at [facility] Right: [employer]-[id number] 02/03/2029 [id number] / / [id number] Chg Head Oxinium Fem 01/26 28m - [id number] Implanted:Qty: 1 on 08/28/2023 by Jayme Matson MD at [facility] Right: [employer]-[id number] 06/23/2033 [id number] / / [id number] Procedures Procedure Name Priority Date/Time Associated Diagnosis Comments HEMOGLOBIN A1C Routine 08/15/2023 2:11 PM EDT Hip pain, right Osteoarthritis of right hip, unspecified osteoarthritis type from Last 3 Months or Most Recently Relevant to Health Maintenance Results * (ABNORMAL) Hemoglobin A1c (08/15/2023 2:11 PM EDT) Hemoglobin A1c 5.8(H) <5.7 % 08/15/2023 6:45 PM EDT [facility] Blood Venous blood specimen / Unknown [...] Adults <6.0% Children and Adolescents <7.5% Source: [place] Diabetes Association. Standards of medical care in diabetes,2017. Diabetes Care.2017:40 (suppl 1):S1-S135. HbA1c assay performed by an ion-exchange chromatography method that is certified traceable to the DCCT. us Jayme Matson MD LAB BLOOD ORDERABLES Final R es[facility] [address] [place] [address] from Last 3 Months or Most Recently Relevant to Health Maintenance Additional Health Concerns Active Problems Noted Date Diagnosed Date Autogenerated Problem 04/22/2024 [address] [place] [address] Advance Directives * Full Code (Latest Code Status on File) Date Activated Date Inactivated Comments 08/28/2023 9:18 AM 08/29/2023 5:41 PM Question Answer Comments Patient has decision-making capacity? Yes Care Teams Sawmill Production Worker Relationship Specialty Start Date End Date Joe Prince MD [address] [id number] [facility] - General 06/30/23
--- OUTSIDE RECORDS SUMMARY | 2024-08-08 11:57 | XMS_ITS | Encounter Summary ---
Author Organization [facility] Address [address] [place] [address] Care Team Providers Care Soft Crab Shedder Name Role Phone Natan Benjamin MD Primary Care Provider [phone] Joe Prince MD Primary Care Provider [phone] Reason for Referral * Consultation (Routine) - Closed Specialty Diagnoses / Procedures Referred By Mally reyes Referred To Contact Orthopaedic Surgery Diagnoses Osteoarthritis of right hip, unspecified osteoarthritis type Praneeth Aiken DO [address] [facility] [address] [place] [address] Phone: tel: fax: Jayme Matson MD [address] [address] Phone: tel: fax: Referral ID Status Reason Start Date Expiration Date Visits Re quested Visits Authorized [id number] Closed 06/20/2023 12/19/2024 1 1 Encounter Details Date Type Department Care Team (Latest Contact Info) Description 06/20/2023 Community [facility] [address] [place] [address] Praneeth Aiken DO [address] [place] [facility] [address] [place] [address] Osteoarthritis of right hip, unspecified osteoarthritis type [...] documented as of this encounter Care Teams Soft Crab Shedder Relationship Specialty Start Date End Date Natan Benjamin MD [address] [place] [id number] PCP - General 06/26/20 06/29/23 Joe Prince MD [address] [place] [id number] PCP - General 06/30/23 documented as of this encounter
--- NOTE | 2024-08-08 13:00 | NM_ITS ---
APPROVED REPORT Exam: Nuclear Stress Test Indication: cad, 4 stents, h/o mi, hypertension, diabetes, hyperlipidemia, tob use, fm hx., c.p., sob, fatigue Patient Location: Outpatient Stress Tech: Melly Piper HI Tech:Shanice Levine, ARRT RT(R)(N) Ht: 5 ft 8 in Wt: 167 lbs HR: 59 bpm BP: 157/78 mmHg BSA: 1.89 m2 TID: 1.12 BMI: 25.3 History: cad, 4 stents, h/o mi, hypertension, diabetes, hyperlipidemia, tob use, fm hx., c.p., sob, fatigue Procedure: Patient received 0.4 mg of intravenous Lexiscan, resting heart rate 59 bpm, resting blood pressure 157/78 mmHg, with Lexiscan maximum heart rate achieved was 88 bpm which is % of the maximum predicted heart rate and blood pressure was 132/67 mmHg. With Lexiscan, patient denied any complaint of chest pain. Cardiac Stress and Resting SPECT Images: Cardiac Stress and Resting SPECT images were obtained using technetium 99m Myoview 32.1 mCi stress and 10.16 mCi at rest. Resting and stress imaging in supine and prone positions demonstrate a medium sized, moderate, predominantly fixed perfusion defect in the basal to mid lateral and inferoateral LV betancur. There is a small region of reversibility towards the mid lateral LV wall. Gated imaging demonstrates normal global LV systolic function. There is mild hypokinesis of the basal lateral LV wall. LVEF is calculated at 56%. Conclusion: Medium sized, moderate, predominantly fixed perfusion defect in the basal to mid lateral and inferoateral LV betancur. There is a small region of reversibility towards the mid lateral LV wall. Findings are suggestive of partial reversible ischemia. Gated imaging demonstrates normal global LV systolic function. There is mild hypokinesis of the basal lateral LV wall. LVEF is calculated at 56%. Electronically signed by : Tonia Sanchez MD 08/10/2024 00:11:35
[2024-08-08] MEDS: ISOTOPE MYOVIEW (PER STUDY) 1 DOSE IV (14:11)
[2024-08-08] MEDS: SODIUM CHLORIDE 0.9% 10ML SYR (RAD ONLY) 10 ML IV ×2 (14:11)
[2024-08-08] MEDS: REGADENOSON 0.4MG/5ML SYRINGE 0.4 MG IV (14:11)
== END 2024-08-08 23:59 | disposition home or self-care (01) ==
LOC: RAD 11:55
PROVIDERS: PCP Family Medicine; Visit Provider Internal Medicine
DX: I25.118 Atherosclerotic heart disease of native coronary artery with other forms of angina pectoris (principal); R53.83 Other fatigue; E11.9 Type 2 diabetes mellitus without complications; I10 Essential (primary) hypertension; E78.5 Hyperlipidemia, unspecified; R00.2 Palpitations; Z72.0 Tobacco use; I25.2 Old myocardial infarction; R07.9 Chest pain, unspecified; R06.02 Shortness of breath
CPT/HCPCS: 78452; 93017; 93018; A9502; J2785

== ENCOUNTER 2024-08-29 07:41 | Day surgery (SDC) | payer MEDICARE, SELFPAY ==
[2024-08-29] VITALS (19 sets, daily range): BP systolic 133–178; BP diastolic 76–98; PULSE 54–63; RESP 16–19; O2SAT 93–100
--- NOTE | 2024-08-29 07:09 | IR_ITS ---
APPROVED REPORT Patient Location: Outpatient Contract Officer: Natan Cueto, RT (R) PROCEDURES Left heart catheterization Left ventriculogram Selective coronary angiogram INDICATION Known coronary artery disease, Angina pectoris, Abnormal Myoview Informed consent was obtained prior to the procedure. COMPLICATIONS NONE Estimated Blood Loss: LESS THAN 10 ML TECHNIQUE One percent lidocaine was used to anesthetize the right groin. The right femoral artery was accessed via the Seldinger technique. A 4-[place]izen [place] sheath was placed in the right femoral artery. The JL-4 and JR-4 catheter was also used to perform left heart catheterization left ventriculogram and selective coronary angiogram. At the end of the procedure the patient was transferred to the post-op holding area in stable condition for arterial sheath removal. ANGIOGRAPHIC RESULTS The left anterior descending artery Normal is an ostial 10% stenosis followed by a stent which is widely patent free of in-stent restenosis with excellent proximal distal transitioning. The remaining LAD is small caliber but widely patent. Both diagonal arteries are widely patent with no angiographic evidence of jailing The circumflex artery Nondominant with an ostial proximal smooth 20% stenosis the stent in the first obtuse marginal artery is widely patent with excellent proximal and distal transitioning The right coronary artery Large and dominant with stents in the proximal mid and distal segment in a contiguous manner the stents are widely patent with minimal in-stent restenosis and excellent distal and proximal transitioning The JOHNSON ventriculogram reveals Normal 65% The left ventricular end-diastolic pressure Elevated at 20 mmHg IMPRESSION Widely patent coronary arteries as described above Normal ejection fraction Elevated LVEDP PLAN 1. Medical management with risk factor modification Electronically signed by : Marco Wheatley MD 08/29/2024 09:35:30
[2024-08-29 08:06] LABS: Hematocrit 42.1 % (42.0-52.0); Hemoglobin 14.2 g/dL (14.1-18.0); Immature Granulocytes % 0.3 %; Mean Corpuscular HGB Conc 33.7 g/dL (31.8-35.4); Mean Corpuscular Hemoglobin 31.3 pg (27.0-31.2); Mean Corpuscular Volume 92.7 fl (80-94); Nucleated Red Blood Cells % 0 %; Platelet Count 205 K/mm3 (142-424); Red Blood Count 4.54 M/mm3 (4.60-6.20); Red Cell Distribution Width-SD 44.3 fL; White Blood Count 5.9 K/mm3 (4.8-10.8)
[2024-08-29 08:14] LABS: Anion Gap 14.3 mEq/L (5-15); Blood Urea Nitrogen 10 mg/dl (9-20); Calcium 9.4 mg/dl (8.4-10.2); Carbon Dioxide 34 mmol/L (22.0-30.0); Chloride 100 mmol/L (98-107); Creatinine Clearance Estimated 75 mL/min (50-200); Creatinine,Serum 1.00 mg/dl (0.66-1.25); Estimated Glomerular Filt Rate 74 ml/min (>60); GFR (African American) 89 ML/MIN (>60); Glucose 129 mg/dl (74-100); Potassium 3.3 mmoL/L (3.5-5.1); Sodium 145 mmol/L (136-145)
[2024-08-29] MEDS: 0.9 % SODIUM CHLORIDE 500 ML 25 ML IV (08:48)
[2024-08-29] MEDS: VERAPAMIL 2.5MG/ML 2ML VIAL 2.5 MG IV (08:48)
[2024-08-29] MEDS: LIDOCAINE 1% 10ML MDV 10 ML IJ (08:48)
[2024-08-29] MEDS: HEPARIN 1,000 UNITS/ML 10ML VIAL (CATH LAB) 5000 UNIT IV (08:48)
[2024-08-29] MEDS: HEPARIN 1,000 UNITS/500ML NS (CATH LAB) 3000 UNIT IV (08:49)
[2024-08-29] MEDS: NITROGLYCERIN 800MCG/8ML SYR (CATH LAB) 800 MCG IA (08:49)
[2024-08-29] MEDS: MIDAZOLAM HCL 1MG/ML 5ML VIAL 1 MG IV (09:24)
[2024-08-29] MEDS: FENTANYL 100MCG/2ML VIAL 50 MCG IV (09:24)
[2024-08-29] MEDS: IOPAMIDOL-370 (76%);100ML BOTTLE 50 ML IV (15:03)
== END 2024-08-29 14:00 | disposition home or self-care (01) ==
PROVIDERS: PCP Family Medicine; Visit Provider Internal Medicine
PROC: 4A023N7 Measurement of Cardiac Sampling and Pressure, Left Heart, Percutaneous Approach (ICD-10-PCS; CPT 93452; principal; 2024-08-29 07:30)
DX: I25.118 Atherosclerotic heart disease of native coronary artery with other forms of angina pectoris (principal); E03.9 Hypothyroidism, unspecified; E11.9 Type 2 diabetes mellitus without complications; I10 Essential (primary) hypertension; F17.210 Nicotine dependence, cigarettes, uncomplicated; E78.2 Mixed hyperlipidemia; Z95.5 Presence of coronary angioplasty implant and graft; Z88.0 Allergy status to penicillin; Z79.82 Long term (current) use of aspirin; Z79.899 Other long term (current) drug therapy; Z79.84 Long term (current) use of oral hypoglycemic drugs; Z79.02 Long term (current) use of antithrombotics/antiplatelets; Z79.890 Hormone replacement therapy; Z79.620 Long term (current) use of immunosuppressive biologic; Z79.891 Long term (current) use of opiate analgesic; Z82.3 Family history of stroke
CPT/HCPCS: 80048; 85025; 93452; 99152; C1725; C1769; J1200; J1644; J2003; J3010; J7040; Q9967